=== PATIENT | female | born 1950 | race Caucasian/White ===

== ENCOUNTER 2016-12-25 12:21 | Emergency (ER) | payer OTHER ==
[2016-12-25 12:36] VITALS: RESP 16; TEMP 98.6
[2016-12-25 13:10] LABS: % IMMATURE GRANULYOCYTES 0.3 % (0.0-1.1); ABSOLUTE IMMATURE GRANULOCYTES 0.02 10^3/uL (0.00-0.10); ADD DIFF? NO; ADD MORPH? NO; ADD SCAN? NO; ATYPICAL LYMPHOCYTE FLAG 0 (0-99); FRAGMENT RBC FLAG 10 (0-99); HEMATOCRIT 45.3 % (38.0-47.0); HEMOGLOBIN 15.6 g/dL (12.6-16.3); LEFT SHIFT FLG 0 (0-99); LIPEMIA HEMOLYSIS FLAG 90 (0-99); MEAN CELL HEMOGLOBIN 31.8 pg (27.9-34.1); MEAN CELL HEMOGLOBIN CONCENTR. 34.4 g/dL (32.4-36.7); MEAN CELL VOLUME 92.4 fL (81.5-99.8); MEAN PLATELET VOLUME 9.4 fL (8.7-11.7); PLATELET CLUMPS FLAG 0 (0-99); PLATELET COUNT 210 10^3/uL (150-400); RED CELL DISTRIBUTION WIDTH 12.2 % (11.5-15.2)
[2016-12-25] MEDS ORDERED: MECLIZINE HCL 25 MG TAB PO ONE (13:24)
[2016-12-25] MEDS ORDERED: MECLIZINE HCL 25 MG TAB ONE (13:25)
--- NOTE | 2016-12-25 14:26 | EDPHY ---
[id number] 12/25/16 13:08 HPI/ROS: CHIEF COMPLAINT: Acute exacerbation of chronic vertigo HISTORY OF PRESENT ILLNESS: The patient presents to the emergency department with an acute exacerbation of chronic vertigo. The patient reports symptoms began on Sunday. She has had nausea and typical vertiginous symptoms. She has a history of intermittent vertigo since 2012. The patient denies recent fall or head injury. She has no complaints of focal numbness or weakness. The patient reportedly took Zofran with some improvement of her symptoms. She reportedly cannot tolerate benzodiazepines. The patient has been on a number of medications for management of vertigo in the past with limited success. The patient has chronic bilateral horizontal nystagmus. She reportedly has been evaluated by a number of providers including the [facility] and the [facility]. REVIEW OF SYSTEMS: A comprehensive 10 point review of systems is otherwise negative aside from elements mentioned in the history of present illness. Source: Patient Exam Limitations: No limitations - Personal History Current Tetanus/Diphtheria Vaccine: Yes Tetanus Vaccine Date: less than ten yrs - Medical/Surgical History Hx Asthma: No Hx Chronic Respiratory Disease: No Hx Diabetes: No Hx Cardiac Disease: No Hx Renal Disease: No Hx Cirrhosis: No Hx Alcoholism: No Hx HIV/AIDS: No Hx Splenectomy or Spleen Trauma: No Other PMH: HTN, VERTIGO, MIGRAINE. PSHx: r foot, r breast diverticulitis - Social History Smoking Status: Never smoked - Physical Exam Exam: General Appearance: Alert, no distress Eyes: Bilateral horizontal nystagmus noted ENT, Mouth: Mucous membranes moist Respiratory: There are no retractions, lungs are clear to auscultation Cardiovascular: Regular rate and rhythm Gastrointestinal: Abdomen is soft and nontender, no masses, bowel sounds normal Neurological: A&O, normal motor function, normal sensory exam, normal cranial nerves Skin: Warm and dry, no rashes Musculoskeletal: Neck is supple nontender Extremities: symmetrical, full range of motion Psychiatric: Patient is oriented X 3, there is no agitation Constitutional: Initial Vital Signs Temperature (C) 37 C 12/25/16 12:33 Heart Rate 67 12/25/16 12:33 Respiratory Rate 16 12/25/16 12:33 Blood Pressure 170/105 H 12/25/16 12:33 O2 Sat (%) 97 12/25/16 12:33 O2 Delivery Mode Room Air Allergies/Adverse Reactions: azithromycin Allergy (Verified 12/25/16 12:32) Vomiting gadobenate dimeglumine [From Multihance] Allergy (Verified 12/25/16 12:32) Vomiting midazolam HCl [From Versed] Allergy (Verified 12/25/16 12:32) Loss of consciousness Penicillins Allergy (Verified 12/25/16 12:32) Itching "Very drug sensitive" Allergy (Uncoded 09/21/13 20:44) pain medications Allergy (Uncoded 08/24/16 16:21) Vomiting Home Medications: Medication Instructions Recorded Aspirin [Aspirin 81mg (*)] 09/22/13 Fioricet (*) 08/24/16 Herbals/Supplements -Info Only 08/24/16 Ondansetron Odt [Zofran Odt 4 mg 08/24/16 (*)] Meclizine HCl [Meclizine HCl 12.5 12.5 mg PO TID PRN #20 tab 12/25/16 mg (*)] Ondansetron Odt [Zofran Odt] 4 mg PO Q4PRN PRN #20 tab 12/25/16 Medical Decision Making ED Course/Re-evaluation: The patient presents to the ED with an acute exacerbation of vertigo. She received IV fluids and had Zofran prior to arrival. She received 12.5 mg of meclizine. The patient did have improvement of her symptoms with no recurrent vomiting. She is ambulatory. She has not entirely asymptomatic but is safe to be discharged. She will be given a prescription for meclizine. She is advised to follow up as scheduled with her primary care provider. There is nothing to suggest central vertigo based upon her presentation today. I do not feel that acute neuro imaging or additional workup is indicated. Differential Diagnosis: Differential diagnosis considered includes central vertigo, peripheral vertigo, labyrinthitis - Data Points Laboratory Results: Laboratory Results 12/25/16 12:55 12/25/16 12:55 12/25/16 12:55 WBC 6.55 10^3/uL (3.80-9.50) RBC 4.90 10^6/uL (4.18-5.33) Hgb 15.6 g/dL (12.6-16.3) Hct 45.3 % (38.0-47.0) MCV 92.4 fL (81.5-99.8) MCH 31.8 pg (27.9-34.1) MCHC 34.4 g/dL (32.4-36.7) RDW 12.2 % (11.5-15.2) Plt Count 210 10^3/uL (150-400) MPV 9.4 fL (8.7-11.7) Neut % (Auto) 64.5 % (39.3-74.2) Lymph % (Auto) 29.0 % (15.0-45.0) [place] % (Auto) 5.3 % (4.5-13.0) Eos % (Auto) 0.3 L % (0.6-7.6) Baso % (Auto) 0.6 % (0.3-1.7) Nucleat RBC Rel Count 0.0 % (0.0-0.2) Absolute Neuts (auto) 4.22 10^3/uL (1.70-6.50) Absolute Lymphs (auto) 1.90 10^3/uL (1.00-3.00) Absolute Monos (auto) 0.35 10^3/uL (0.30-0.80) Absolute Eos (auto) 0.02 L 10^3/uL (0.03-0.40) Absolute Basos (auto) 0.04 10^3/uL (0.02-0.10) Absolute Nucleated RBC 0.00 10^3/uL (0-0.01) Immature Gran % 0.3 % (0.0-1.1) Immature Gran # 0.02 10^3/uL (0.00-0.10) Sodium 141 mEq/L (134-144) Potassium 4.3 mEq/L (3.5-5.2) Chloride 104 mEq/L (97-110) Carbon Dioxide 26 mEq/l (22-31) Anion Gap 11 mEq/L (8-16) BUN 15 mg/dL (7-23) Creatinine 0.8 mg/dL (0.6-1.0) Estimated GFR > 60 Glucose 108 H mg/dL (70-100) Calcium 9.2 mg/dL (8.5-10.4) Medications Given: Discontinued Medications Meclizine HCl (Meclizine Hcl) 12.5 mg PO EDNOW ONE Stop: 12/25/16 13:25 Last Admin: 12/25/16 13:29 Dose: 12.5 mg Departure - Departure Disposition: Home, Routine, Self-Care Clinical Impression: Vertigo Condition: Good Instructions: Vertigo (ED) Additional Instructions: 1. Zofran as needed for nausea. 12.5 mg meclizine as needed for dizziness. 2. Return to the ED for markedly worsening symptoms or other concerns. Referrals: Ramandeep Renteria MD [Primary Care Provider] - As per Instructions Prescriptions: Meclizine HCl [Meclizine HCl 12.5 mg (*)] 12.5 mg PO TID PRN #20 tab PRN Reason: for vertigo Ondansetron Odt [Zofran Odt] 4 mg PO Q4PRN PRN #20 tab PRN Reason: For Nausea
[2016-12-25 14:43] LABS: ANION GAP 11 mEq/L (8-16); CALCIUM 9.2 mg/dL (8.5-10.4); CARBON DIOXIDE 26 mEq/l (22-31); CHLORIDE 104 mEq/L (97-110); CREATININE 0.8 mg/dL (0.6-1.0); GLOMERULAR FILTRATION RATE > 60; GLUCOSE 108 mg/dL (70-100); POTASSIUM 4.3 mEq/L (3.5-5.2); SODIUM 141 mEq/L (134-144)
[2016-12-25 15:10] VITALS: BP 162/96; PULSE 68; O2SAT 98
== END 2016-12-25 15:10 | disposition home or self-care (01) ==
DX: R42 Dizziness and giddiness (principal); I10 Essential (primary) hypertension; Z79.82 Long term (current) use of aspirin

== ENCOUNTER → 2017-01-22 | Outpatient (CLI) | payer OTHER | LOC: FIMAGING 15:25 | DX: Z12.31 Encounter for screening mammogram for malignant neoplasm of breast (principal) | CPT/HCPCS: G0202 ==

== ENCOUNTER 2018-03-19 22:00 | Emergency (ER) | payer OTHER ==
--- NOTE | 2018-03-19 22:44 | EDPHY ---
H & P Stated Complaint: COUGH , CONGESTION AND FEVER FEW DAYS Time Seen by Provider: 03/19/18 22:28 HPI/ROS: Chief Complaint: Fever, congestion, cough HPI: 67-year-old woman presenting with 3-4 days of cough, congestion, mild sore throat and intermittent fever. Tonight at 7 o'clock she says her fever was 101. She took 2 Advil. She is concerned that she has continued to have intermittent fevers in this might represent a significant underlying infection. Her cough is nonproductive. No abdominal pain. No urinary symptoms. No nausea or vomiting. No chest pain. No shortness of breath. She does not have any underlying medical problems. She is no history of immunocompromise. She is on no chronic medications. ROS: 10 point Review of Systems is negative except as noted in the HPI. PMH: Vertigo Social History: No smoking, no alcohol, no recreational drug use Family History: non-contributory Physical Exam: Gen: Awake, Alert, No Distress HEENT: Nose: no rhinorrhea Eyes: PERRLA, EOMI Mouth: Moist mucosa Neck: Supple, no JVD Chest: nontender, lungs clear to auscultation Heart: S1, S2 normal, no murmur Abd: Soft, non-tender, no guarding Back: no CVA tenderness, no midline tenderness Ext: no edema, non-tender Skin: no rash Neuro: CN II-XII intact, Sensation grossly intact, Strength 5/5 in bilateral upper and lower extremities - Personal History Current Tetanus/Diphtheria Vaccine: No Current Tetanus Diphtheria and Acellular Pertussis (TDAP): No Tetanus Vaccine Date: less than ten yrs - Medical/Surgical History Hx Asthma: No Hx Chronic Respiratory Disease: No Hx Diabetes: No Hx Cardiac Disease: No Hx Renal Disease: No Hx Cirrhosis: No Hx Alcoholism: No Hx HIV/AIDS: No Hx Splenectomy or Spleen Trauma: No Other PMH: HTN, VERTIGO, MIGRAINE. PSHx: r foot, r breast diverticulitis - Social History Smoking Status: Never smoked Constitutional: Initial Vital Signs Temperature (C) 37.6 C 03/19/18 22:05 Heart Rate 83 03/19/18 22:05 Respiratory Rate 18 03/19/18 22:05 Blood Pressure 171/100 H 03/19/18 22:05 O2 Sat (%) 92 03/19/18 22:05 O2 Delivery Mode Room Air Allergies/Adverse Reactions: azithromycin Allergy (Verified 03/19/18 22:09) Vomiting gadobenate dimeglumine [From Multihance] Allergy (Verified 03/19/18 22:09) Vomiting midazolam HCl [From Versed] Allergy (Verified 03/19/18 22:09) Loss of consciousness Penicillins Allergy (Verified 03/19/18 22:09) Itching "Very drug sensitive" Allergy (Uncoded 03/19/18 22:09) pain medications Allergy (Uncoded 03/19/18 22:09) Vomiting Home Medications: Medication Instructions Recorded Aspirin [Aspirin 81mg (*)] 09/22/13 Fioricet (*) 08/24/16 Herbals/Supplements -Info Only 08/24/16 Meclizine HCl [Meclizine HCl 12.5 12.5 mg PO TID PRN #20 tab 12/25/ mg (*)] Medical Decision Making - Diagnostics Imaging Results: Imaging Impressions Chest X-Ray 03/19/18 22:37 Impression: No consolidative pneumonia. Imaging: I viewed and interpreted images myself ED Course/Re-evaluation: Chest x-ray is negative for acute pneumonia or consolidation. Patient has otherwise no focal source of infection. Symptoms consistent with viral upper respiratory infection. She is afebrile here. Oxygen saturations remained of her vital signs are unremarkable. Will discharge with supportive treatment, follow up with primary care physician in 3-4 days for further evaluation. Departure - Departure Disposition: Home, Routine, Self-Care Clinical Impression: Viral upper respiratory illness Condition: Good Instructions: Upper Respiratory Infection (ED) Additional Instructions: Alternate acetaminophen (1000 mg) with ibuprofen (400 mg) every 4 hours as needed for fevers, chills, aches or pain. Follow up with primary care physician in 2-4 days for further evaluation. Return to the emergency department for uncontrolled fever, shortness of breath, worsening cough, or any other concerns. Referrals: Ramandeep Renteria MD [Primary Care Provider] - As per Instructions
[2018-03-19] MEDS ORDERED: ACETAMINOPHEN 500 MG TAB PO ONE (23:55)
[2018-03-20 00:09] VITALS: BP 179/87
== END 2018-03-20 00:35 | disposition home or self-care (01) ==
DX: J06.9 Acute upper respiratory infection, unspecified (principal); I10 Essential (primary) hypertension; Z79.82 Long term (current) use of aspirin

== ENCOUNTER → 2019-01-02 | Outpatient (CLI) | payer OTHER | LOC: FIMAGING 11:51 | PROVIDERS: ATTEND Family Medicine | DX: Z12.31 Encounter for screening mammogram for malignant neoplasm of breast (principal); Z80.3 Family history of malignant neoplasm of breast ==

== ENCOUNTER 2019-03-12 18:00 | Emergency (ER) | payer OTHER ==
[2019-03-12] MEDS ORDERED: metroNIDAZOLE 500 MG TAB PO ONE (19:11)
--- NOTE | 2019-03-12 19:11 | EDPHY ---
H & P Time Seen by Provider: 03/12/19 18:37 HPI/ROS: CHIEF COMPLAINT: Diverticulitis HISTORY OF PRESENT ILLNESS: 68-year-old woman has a history of previous diverticulitis where she was much sicker and ended up being hospitalized for several days back in 2016. She has been sick with a head cold for about 2 or 3 weeks and was seen in her primary care physician's office recently and given a prescription for Levaquin which she did not take initially. On Sunday night she started with left lower quadrant abdominal pain which was similar to previous episode of diverticulitis. Last night she got a lot worse in at 1:00 a.m. She felt really sick. She started Levaquin last night and now she feels better than she did at 1:00 a.m. But still not completely better. She had at 5: 30 p.m. Slight blood and mucus stool when she wiped on the toilet paper. Pain does not radiate. It is a little bit worse with movement. No vomiting, no fever or chills. REVIEW OF SYSTEMS: Eye: no change in vision ENT: HPI recent head cold Cardiac: no chest pain or syncope Pulmonary: no cough or SOB Abdomen: HPI no diarrhea but stool is present. Musculoskeletal: no back pain Skin: no rash Neuro: no headache Constitutional: no fever : no urinary symptoms A comprehensive 10 point review of systems is otherwise negative aside from elements mentioned in the history of present illness. PAST MEDICAL HISTORY: Includes diverticulitis, migraine, right foot and right breast surgery Social history: Primary care is Dr. Ramandeep Renteria General Appearance: Alert and conversant, cooperative. Eyes: No scleral icterus. ENT, Mouth: Slightly dry mucous membranes but decreased oral intake after talking to the triage nurse at 5:30 p.m.. Respiratory: Normal respiratory effort, breath sounds equal, lungs are clear to auscultation. Cardiovascular: Regular rate and rhythm. Gastrointestinal: Abdomen is soft and non tender. She does not have rebound or guarding. Bowel sounds are present. Rectal exam shows brown stool with no active blood or melena or maroon stool or bleeding. Neurological: Alert, face symmetric, normal motor and sensory in extremities. Skin: Warm and dry, no rashes. Musculoskeletal: No peripheral edema. Psychiatric: Not agitated. Emergency Department course/MDM: Patient is afebrile, has a benign abdominal exam, is not vomiting. She thinks that she has recurrent diverticulitis. I think the little bit of blood that she had does not represent impending large lower GI bleed. I think that perforation or abscess is less likely, appendicitis or bowel obstruction or renal colic or UTI unlikely. Discussed treatment with meclizine which she has, Levaquin and Flagyl and the patient is in agreement with the plan. She is in agreement with no imaging at this time, which I think is reasonable. Smoking Status: Never smoked Constitutional: Initial Vital Signs Temperature (C) 37.2 C 03/12/19 18:03 Heart Rate 74 03/12/19 18:03 Respiratory Rate 16 03/12/19 18:03 Blood Pressure 172/102 H 03/12/19 18:03 O2 Sat (%) 94 03/12/19 18:03 O2 Delivery Mode Room Air Allergies/Adverse Reactions: azithromycin Allergy (Verified 03/19/18 22:09) Vomiting gadobenate dimeglumine [From Multihance] Allergy (Verified 03/19/18 22:09) Vomiting midazolam HCl [From Versed] Allergy (Verified 03/19/18 22:09) Loss of consciousness Penicillins Allergy (Verified 03/19/18 22:09) Itching "Very drug sensitive" Allergy (Uncoded 03/19/18 22:09) pain medications Allergy (Uncoded 03/19/18 22:09) Vomiting Home Medications: Medication Instructions Recorded Aspirin [Aspirin 81mg (*)] 09/22/13 Fioricet (*) 08/24/16 Herbals/Supplements -Info Only 08/24/16 Meclizine HCl [Meclizine HCl 12.5 12.5 mg PO TID PRN #20 tab 12/25/16 mg (*)] levOFLOXACIN [levAQUIN (*)] 750 mg PO DAILY #6 tab 03/12/19 metroNIDAZOLE [Metronidazole] 500 mg PO Q8H #30 tab 03/12/19 Medical Decision Making - Data Points Medications Given: Discontinued Medications Levofloxacin (Levaquin) 750 mg PO EDNOW ONE PRN Reason: Protocol Stop: 03/12/19 19:12 Last Admin: 03/12/19 19:17 Dose: 750 mg Metronidazole (Flagyl) 500 mg PO EDNOW ONE PRN Reason: Protocol Stop: 03/12/19 19:12 Last Admin: 03/12/19 19:17 Dose: 500 mg Departure - Departure Disposition: Home, Routine, Self-Care Clinical Impression: Diverticulitis Qualifiers: Diverticulitis site: unspecified part of intestinal tract Diverticulitis bleeding: unspecified bleeding status Diverticulitis complication: without perforation or abscess Qualified Code(s): K57.92 - Diverticulitis of intestine, part unspecified, without perforation or abscess without bleeding Condition: Good Instructions: Diverticulitis (ED) Additional Instructions: Continue Levaquin for total of 14 days. Return if you get fever or worsening pain or vomiting, recurrent or increasing rectal bleeding. Referrals: Ramandeep Renteria MD [Primary Care Provider] - 3-4 days, if not improved Prescriptions: levOFLOXACIN [levAQUIN (*)] 750 mg PO DAILY #6 tab metroNIDAZOLE [Metronidazole] 500 mg PO Q8H #30 tab
[2019-03-12] MEDS ORDERED: metroNIDAZOLE 500 MG TAB ONE (19:22)
[2019-03-12 19:25] VITALS: BP 153/116
== END 2019-03-12 19:22 | disposition home or self-care (01) ==
DX: K57.92 Diverticulitis of intestine, part unspecified, without perforation or abscess without bleeding (principal)

== ENCOUNTER 2019-03-14 00:26 | Inpatient (IN) | payer OTHER ==
[2019-03-14] MEDS ORDERED: NS 1,000 ML IV ONE ×2 (00:32→01:37)
[2019-03-14] MEDS ORDERED: HYDROmorphONE/DILAUDID 2 MG/ML INJ IVP ONE (00:32)
--- NOTE | 2019-03-14 00:36 | EDPHY ---
H & P Stated Complaint: diverticulitis Time Seen by Provider: 03/14/19 00:35 HPI/ROS: HPI CHIEF COMPLAINT: Abdominal pain, chills, diverticulitis HISTORY OF PRESENT ILLNESS: This patient is a 68-year-old female, she presents emergency room with ongoing abdominal pain, chills, nausea, this concerned that her diverticulitis is getting worse. Patient states she was recently in emergency room started on Flagyl and previously to that Levaquin. She followed up with primary care doctor today if she felt worse who recommended that she comes back to the emergency room. She went back home. And now tonight she started developing chills/rigors and felt unwell so called 911. She arrives to the emergency room by ambulance complaining of feeling unwell. Past Medical History: History of migraines, diverticulitis in the past Past Surgical History: No recent surgery Social History: Denies drugs alcohol tobacco. Family History: Noncontributory ROS REVIEW OF SYSTEMS: 10 Systems were reviewed and negative with the exception of the elements mentioned in the history of present illness. Exam Constitutional triage nursing summary reviewed, vital signs reviewed, awake/ alert. Eyes normal conjunctivae and sclera, EOMI, PERRLA. HENT normal inspection, atraumatic, moist mucus membranes, no epistaxis, neck supple/ no meningismus, no raccoon eyes. Respiratory clear to auscultation bilaterally, normal breath sounds, no respiratory distress, no wheezing. Cardiovascular rate normal, regular rhythm, no murmur, no edema, distal pulses normal. Gastrointestinal mild tender palpation left lower quadrant, no peritoneal signs , no rebound, no guarding, normal bowel sounds, no distension, no pulsatile mass. Genitourinary no CVA tenderness. Musculoskeletal no midline vertebral tenderness, full range of motion, no calf swelling, no tenderness of extremities, no meningismus, good pulses, neurovascularly intact. Skin pink, warm, & dry, no rash, skin atraumatic. Neurologic awake, alert and oriented x 3, AAOx3, moves all 4 extremities equally, motor intact, sensory intact, CN II-XII intact, normal cerebellar, normal vision, normal speech. Psychiatric normal mood/affect. Heme/Lymph/Immune no lymphadenopathy. Differential Diagnosis: Differential diagnosis includes but is not limited to and in no particular order: Complicated diverticulitis, diverticulitis with perforation, diverticulitis with abscess, rigors indicating bacteremia, Bowel obstruction, appendicitis, gallbladder disease, diverticulitis, colitis, enteritis, perforated viscus, gastritis, GERD, esophagitis, urinary tract infection, pyelonephritis, kidney stones Medical Decision Making: Plan for this patient IV establishment IV fluid bolus , IV Dilaudid for pain control, basic labs, lactic acid, blood cultures, CT scan abdomen pelvis with IV contrast and re-evaluate. Re-evaluation: CT scan abdomen pelvis with IV contrast faxed to me by direct [facility]iology at time 1:50 a.m., acute uncomplicated diverticulitis of the sigmoid colon. Additionally multiple incompletely characterized liver lesions recommend dedicated liver imaging no significant change compared to 04/04/2016. Source: Patient - Personal History Current Tetanus Diphtheria and Acellular Pertussis (TDAP): Yes Tetanus Vaccine Date: less than ten yrs - Medical/Surgical History Hx Asthma: No Hx Chronic Respiratory Disease: No Hx Diabetes: No Hx Cardiac Disease: No Hx Renal Disease: No Hx Cirrhosis: No Hx Alcoholism: No Hx HIV/AIDS: No Hx Splenectomy or Spleen Trauma: No Other PMH: HTN, VERTIGO, MIGRAINE. PSHx: R foot, R breast lumpectomy, diverticulitis - Social History Smoking Status: Never smoked Constitutional: Initial Vital Signs Temperature (C) 37 C 03/14/19 00:29 Heart Rate 88 03/14/19 00:29 Respiratory Rate 16 03/14/19 00:29 Blood Pressure 206/95 H 03/14/19 00:29 O2 Sat (%) 96 03/14/19 00:29 O2 Delivery Mode Nasal Cannula O2 (L/minute) 2 Allergies/Adverse Reactions: azithromycin Allergy (Verified 03/14/19 00:29) Vomiting gadobenate dimeglumine [From Multihance] Allergy (Verified 03/14/19 00:29) Vomiting midazolam HCl [From Versed] Allergy (Verified 03/14/19 00:29) Loss of consciousness Penicillins Allergy (Verified 03/14/19 00:29) Itching "Very drug sensitive" Allergy (Uncoded 03/14/19 00:29) pain medications Allergy (Uncoded 03/14/19 00:29) Vomiting Home Medications: Medication Instructions Recorded metroNIDAZOLE [Metronidazole] 500 mg PO Q8H #30 tab 03/12/19 Acetaminophen [Tylenol 325mg (*)] 325 mg PO Q4HRS PRN 03/14/19 Ascorbic Acid [Vitamin C 500 mg 500 mg PO DAILY 03/14/19 (*)] C/E/Zn/Cu/OM3/DHA/EPA/LUT/ZEAX 1 each PO BID 03/14/19 [Preservision Areds 2 Softgel] Cholecalciferol Vit D3 [Vitamin D3 1,000 units PO DAILY 03/14/19 (*)] Glucosamine/Chondroitin 1 each PO DAILY 03/14/19 [Glucosamine/Chondroitin (*)] Ibuprofen [Motrin (*)] 200 mg PO Q4HRS PRN 03/14/19 Irbesartan [Avapro 75 mg (*)] 75 mg PO HS 03/14/19 Lact Cmb2/S.thermophl/Bif Cmb1 1 each PO DAILY 03/14/19 [Vsl#3 Cap (*)] [place]-3 Fatty Acids [Fish Oil 1000 1,000 mg PO DAILY 03/14/19 mg (*)] Polyethylene Glycol 3350 [Miralax 17 gm PO DAILY 03/14/19 17 gm (*)] Psyllium Husk (with Sugar) 1 each PO DAILY 03/14/19 [Metamucil Packet] Tears/Dextran 70/Hypromellose 1 drop EACHEYE Q2 PRN 03/14/19 [Natural Balance Tears (*)] levOFLOXACIN [levAQUIN (*)] 750 mg PO DAILY@17 03/14/19 Medical Decision Making - Data Points Laboratory Results: Laboratory Results 03/14/19 00:32 03/14/19 00:32 Medications Given: Enoxaparin Sodium (Lovenox) 40 mg SC DAILY HARRY Stop: 09/10/19 08:59 Last Admin: 03/14/19 09:07 Dose: 40 mg Metronidazole/Sodium Chloride (Flagyl 500 Mg (Premix)) 100 mls @ 100 mls/hr IV Q8H HARRY Stop: 04/13/19 10:59 Last Admin: 03/14/19 19:22 Dose: 100 mls Ondansetron HCl (Zofran) 4 mg IVP Q4HRS PRN PRN Reason: Nausea/Vomiting, Can't Take PO Stop: 09/10/19 02:22 Last Admin: 03/14/19 06:37 Dose: 4 mg Pantoprazole Sodium (Protonix) 40 mg IVP DAILY HARRY Stop: 09/10/19 08:59 Last Admin: 03/14/19 09:08 Dose: 40 mg Discontinued Medications Hydromorphone HCl (Dilaudid) 0.5 mg IVP EDNOW ONE Stop: 03/14/19 00:33 Last Admin: 03/14/19 00:39 Dose: 0.5 mg Sodium Chloride (Ns) 1,000 mls @ 0 mls/hr IV EDNOW ONE; Wide Open PRN Reason: Protocol Stop: 03/14/19 00:33 Last Admin: 03/14/19 00:41 Dose: 1,000 mls Sodium Chloride (Ns) 1,000 mls @ 0 mls/hr IV ONCE ONE PRN Reason: Wide Open Stop: 03/14/19 01:38 Last Admin: 03/14/19 02:56 Dose: 1,000 mls Ceftriaxone Sodium/Dextrose (Rocephin 1 Gm (Premix)) 50 mls @ 100 mls/hr IV EDNOW ONE PRN Reason: Protocol Stop: 03/14/19 02:32 Last Admin: 03/14/19 02:50 Dose: 50 mls Metronidazole/Sodium Chloride (Flagyl 500 Mg (Premix)) 100 mls @ 100 mls/hr IV EDNOW ONE PRN Reason: Protocol Stop: 03/14/19 03:02 Last Admin: 03/14/19 03:01 Dose: 100 mls Sodium Chloride (Ns) 1,000 mls @ 100 mls/hr IV CONT HARRY Stop: 03/14/19 19:14 Last Admin: 03/14/19 09:34 Dose: 1,000 mls Departure - Departure Disposition: [facility] Clinical Impression: Liver lesion Diverticulitis Qualifiers: Diverticulitis site: unspecified part of intestinal tract Diverticulitis bleeding: without bleeding Diverticulitis complication: unspecified complication status Qualified Code(s): K57.92 - Diverticulitis of intestine, part unspecified, without perforation or abscess without bleeding Condition: Fair
[2019-03-14 00:43] LABS: PLATELET COUNT 215 10^3/uL (150-400)
[2019-03-14 00:51] LABS: INR 1.01 (0.83-1.16); PROTIME(PATIENT) 12.9 SEC (12.0-15.0)
[2019-03-14] MEDS ORDERED: IOPAMIDOL (ISOVUE-300) 100 ML BTL ONE (01:05)
[2019-03-14] MEDS ORDERED: ONDANSETRON 4 MG/2 ML VIAL IVP PRN (02:23)
[2019-03-14] MEDS ORDERED: ACETAMINOPHEN 325 MG TAB PO PRN (02:23)
[2019-03-14] MEDS ORDERED: HYDROCODONE/APAP 5/325 TAB PO PRN (02:23)
[2019-03-14] MEDS ORDERED: diphenhydrAMINE 25 MG CAP PO PRN (02:23)
[2019-03-14] MEDS ORDERED: HYDROmorphONE/DILAUDID 1 MG/ML INJ IVP PRN (02:23)
[2019-03-14] MEDS ORDERED: PROMETHAZINE HCL 25 MG/ML INJ IVP PRN (08:29)
[2019-03-14] MEDS ORDERED: HYOSCYAMINE SULFATE 0.125 MG TAB PO PRN (08:32)
[2019-03-14] MEDS ORDERED: DICYCLOMINE 10 MG CAP PO PRN (08:32)
[2019-03-14] MEDS ORDERED: MAG HYDROX/AL HYDROX/SIMETH 30 ML UDCUP PO PRN (08:34)
[2019-03-14] MEDS: ENOXAPARIN 40 MG/0.4 ML SYR SC SCH (09:07)
[2019-03-14] MEDS: PANTOPRAZOLE SODIUM 40 MG VIAL IVP SCH (09:08)
[2019-03-14] MEDS ORDERED: NS 1,000 ML IV SCH (09:15)
[2019-03-14] MEDS ORDERED: hydrALAZINE 20 MG/ML VIAL IVP PRN (09:43)
--- NOTE | 2019-03-14 10:07 | PDGENHP ---
History and Physical - Chief Complaint Left lower quadrant abdominal pain - History of Present Illness Source-patient provides history appears reliable. EMR was reviewed and case discussed with ED provider. This is a 68-year-old female with past medical history significant for GERD, diverticulitis in 2016 vertigo hypertension who presents emergency department today with complaints of left lower quadrant abdominal pain. Patient reports she has had increasing nausea with some vomiting on and constipation. Patient denies any melena or hematochezia although she did have some a small swipe of blood on toilet paper x1. She also is reporting some increasing pain that she has never felt before so CT dysphagia some numbness tingling in all extremities nothing focal. On she reports that she has been sick with a viral URI type syndrome for the past 2-3 weeks and she has had a fever. Issues patient is complaining of a cough. She denies any chest pain or shortness of breath. Patient currently complaining of severe reflux. She notes abdominal distension and severe intermittent cramping in the left lower quadrant. Patient reports that her pain was so bad this evening that as she lives alone she did call 911 as she could even get up to the go to the bathroom. Patient previously had discussed a surgery is an option to relieve her symptoms. At this point given the severity of her symptoms on the 2nd occurrence she in the future will plan to seriously consider a sigmoidectomy. History Information - Allergies/Home Medication List Allergies/Adverse Reactions: azithromycin Allergy (Verified 03/14/19 00:29) Vomiting gadobenate dimeglumine [From Multihance] Allergy (Verified 03/14/19 00:29) Vomiting midazolam HCl [From Versed] Allergy (Verified 03/14/19 00:29) Loss of consciousness Penicillins Allergy (Verified 03/14/19 00:29) Itching "Very drug sensitive" Allergy (Uncoded 03/14/19 00:29) pain medications Allergy (Uncoded 03/14/19 00:29) Vomiting Home Medications: Acetaminophen [Tylenol 325mg (*)] 325 mg PO Q4HRS PRN 03/14/19 [Last Taken Unknown] Ascorbic Acid [Vitamin C 500 mg (*)] 500 mg PO DAILY 03/14/19 [Last Taken ] C/E/Zn/Cu/OM3/DHA/EPA/LUT/ZEAX [Preservision Areds 2 Softgel] 1 each PO BID [Last Taken 03/13/19 21:00] Cholecalciferol Vit D3 [Vitamin D3 (*)] 1,000 units PO DAILY 03/14/19 [Last Taken 03/13/19] Glucosamine/Chondroitin [Glucosamine/Chondroitin (*)] 1 each PO DAILY 03/14/19 [ Last Taken 03/13/19] Ibuprofen [Motrin (*)] 200 mg PO Q4HRS PRN 03/14/19 [Last Taken Unknown] Irbesartan [Avapro 75 mg (*)] 75 mg PO HS 03/14/19 [Last Taken 03/13/19] Lact Cmb2/S.thermophl/Bif Cmb1 [Vsl#3 Cap (*)] 1 each PO DAILY 03/14/19 [Last Taken 03/13/19] [place]-3 Fatty Acids [Fish Oil 1000 mg (*)] 1,000 mg PO DAILY 03/14/19 [Last Taken 03/13/19] Polyethylene Glycol 3350 [Miralax 17 gm (*)] 17 gm PO DAILY 03/14/19 [Last Taken 03/13/19] Psyllium Husk (with Sugar) [Metamucil Packet] 1 each PO DAILY 03/14/19 [Last Taken 03/13/19] Tears/Dextran 70/Hypromellose [Natural Balance Tears (*)] 1 drop EACHEYE Q2 PRN 03/14/19 [Last Taken Unknown] levOFLOXACIN [levAQUIN (*)] 750 mg PO DAILY@17 03/14/19 [Last Taken 03/12/19] I have personally reviewed and updated: family history, medical history, social history, surgical history - Past Medical History Additional medical history: GERD, diverticulitis, vertigo, HTN - Surgical History Additional surgical history: Right toe surgery x2 right breast lumpectomy were significant for a fibroadenoma. - Family History Additional family history: Grandfather with diabetes, sister and grandmother with breast cancer. - Social History Smoking Status: Never smoked Alcohol Use: None Drug Use: None Additional social history: Patient lives alone. Code status full. Review of Systems Review of Systems: ROS: 10pt was reviewed & negative except for what was stated in HPI & below Constitutional: Reports: chills, fever, malaise, recent illness, weakness Physical Exam Physical Exam: Selected Entries 03/14/19 00:29 Blood Pressure Automatic Method Heart Rate 88 Respiratory 16 Rate O2 Sat (%) 96 Temperature (C) 37 C Blood Pressure 206/95 H Mean Arterial 132 H Pressure (MAP) O2 Delivery Room Air Mode Temperature Oral Source Temp Pulse Resp BP Pulse Ox 36.9 C 71 16 155/82 H 97 03/14/19 08:00 03/14/19 08:00 03/14/19 08:00 03/14/19 09:26 03/14/19 08:00 O2 (L/minute) 1 Constitutional: appears nourished, uncomfortable, other (Patient no acute distress. She does appear uncomfortable and is lying quietly in bed she does appear significantly tired and acutely ill but nontoxic.) Eyes: PERRL (Slightly decreased reactivity light bilaterally but symmetric.), EOMI, No scleral injection Ears, Nose, Mouth, Throat: dry mucous membranes, other (No nasal discharge), No poor dentition Cardiovascular: regular rate and rhythym, no murmur, rub, or gallop, irregularly irregular, No edema Peripheral Pulses: 1+: dorsalis-pedis (R), dorsalis-pedis (L) Respiratory: no respiratory distress, no rales or rhonchi, clear to auscultation , reduced air movement (Poor inspiratory effort) Gastrointestinal: no palpable masses, distension, other (Hypoactive bowel sounds ), No ascites, No guarding Genitourinary: no bladder tenderness, No osullivan in urethra Skin: warm, no rashes or abrasions, other ([place]) Musculoskeletal: pain with ROM, generalized weakness Neurologic: AAOx3, sensation intact bilaterally, other (Grossly nonfocal exam.) , No facial droop Psychiatric: interacting appropriately, not encephalopathic, thought process linear, anxious, No poor insight, No poor judgement, No poor memory Lab Data & Imaging Review 03/14/19 00:32 03/14/19 00:32 WBC 6.91 10^3/uL (3.80-9.50) 03/14/19 00:32 RBC 4.82 10^6/uL (4.18-5.33) 03/14/19 00:32 Hgb 15.0 g/dL (12.6-16.3) 03/14/19 00:32 Hct 43.6 % (38.0-47.0) 03/14/19 00:32 MCV 90.5 fL (81.5-99.8) 03/14/19 00:32 MCH 31.1 pg (27.9-34.1) 03/14/19 00:32 MCHC 34.4 g/dL (32.4-36.7) 03/14/19 00:32 RDW 11.8 % (11.5-15.2) 03/14/19 00:32 Plt Count 215 10^3/uL (150-400) 03/14/19 00:32 MPV 9.5 fL (8.7-11.7) 03/14/19 00:32 Neut % (Auto) 50.0 % (39.3-74.2) 03/14/19 00:32 Lymph % (Auto) 39.1 % (15.0-45.0) 03/14/19 00:32 [place] % (Auto) 8.7 % (4.5-13.0) 03/14/19 00:32 Eos % (Auto) 1.2 % (0.6-7.6) 03/14/19 00:32 Baso % (Auto) 0.6 % (0.3-1.7) 03/14/19 00:32 Nucleat RBC Rel Count 0.0 % (0.0-0.2) 03/14/19 00:32 Absolute Neuts (auto) 3.46 10^3/uL (1.70-6.50) 03/14/19 00:32 Absolute Lymphs (auto) 2.70 10^3/uL (1.00-3.00) 03/14/19 00:32 Absolute Monos (auto) 0.60 10^3/uL (0.30-0.80) 03/14/19 00:32 Absolute Eos (auto) 0.08 10^3/uL (0.03-0.40) 03/14/19 00:32 Absolute Basos (auto) 0.04 10^3/uL (0.02-0.10) 03/14/19 00:32 Absolute Nucleated RBC 0.00 10^3/uL (0-0.01) 03/14/19 00:32 Immature Gran % 0.4 % (0.0-1.1) 03/14/19 00:32 Immature Gran # 0.03 10^3/uL (0.00-0.10) 03/14/19 00:32 PT 12.9 SEC (12.0-15.0) 03/14/19 00:32 INR 1.01 (0.83-1.16) 03/14/19 00:32 APTT 36.6 SEC (23.0-38.0) 03/14/19 00:32 VBG Lactic Acid 1.2 mmol/L (0.7-2.1) 03/14/19 00:32 Sodium 134 mEq/L (135-145) L 03/14/19 00:32 Potassium 4.1 mEq/L (3.5-5.2) 03/14/19 00:32 Chloride 97 mEq/L (97-110) 03/14/19 00:32 Carbon Dioxide 24 mEq/l (22-31) 03/14/19 00:32 Anion Gap 13 mEq/L (6-14) 03/14/19 00:32 BUN 9 mg/dL (7-23) 03/14/19 00:32 Creatinine 0.7 mg/dL (0.6-1.0) 03/14/19 00:32 Estimated GFR > 60 03/14/19 00:32 Glucose 114 mg/dL (70-100) H 03/14/19 00:32 Calcium 9.5 mg/dL (8.5-10.4) 03/14/19 00:32 Total Bilirubin 0.7 mg/dL (0.1-1.4) 03/14/19 00:32 Conjugated Bilirubin 0.2 mg/dL (0.0-0.5) 03/14/19 00:32 Unconjugated Bilirubin 0.5 mg/dL (0.0-1.1) 03/14/19 00:32 AST 20 IU/L (14-46) 03/14/19 00:32 ALT 30 IU/L (9-52) 03/14/19 00:32 Alkaline Phosphatase 126 IU/L (38-126) 03/14/19 00:32 Total Protein 7.8 g/dL (6.3-8.2) 03/14/19 00:32 Albumin 4.5 g/dL (3.5-5.0) 03/14/19 00:32 Lipase 125 IU/L (23-300) 03/14/19 00:32 Urine Color PALE YELLOW 03/14/19 02:24 Urine Appearance CLEAR 03/14/19 02:24 Urine pH 5.0 (5.0-7.5) 03/14/19 02:24 Ur Specific [place] > 1.035 (1.002-1.030) H 03/14/19 02:24 Urine Protein NEGATIVE (NEGATIVE) 03/14/19 02:24 Urine Ketones 1+ (NEGATIVE) H 03/14/19 02:24 Urine Blood NEGATIVE (NEGATIVE) 03/14/19 02:24 Urine Nitrate NEGATIVE (NEGATIVE) 03/14/19 02:24 Urine Bilirubin NEGATIVE (NEGATIVE) 03/14/19 02:24 Urine Urobilinogen NEGATIVE EU (0.2-1.0) 03/14/19 02:24 Ur Leukocyte Esterase NEGATIVE (NEGATIVE) 03/14/19 02:24 Urine Glucose NEGATIVE (NEGATIVE) 03/14/19 02:24 Imaging Review: CT Scan of the Abdomen and Pelvis (With Contrast) 0116 hours History: Worsening abdominal pain, worsening diverticulitis, history of benign liver lesions. Comparison: CT April 04, 2016. Technique: Axial computed tomographic images of the abdomen and pelvis were obtained with the uneventful intravenous administration of 90 mL Isovue-300 contrast. No oral contrast. Dose reduction techniques were utilized. CT Abdomen Findings: Lung bases: No pleural effusion. Liver: Several hypodense hepatic lesions with the largest centrally in the right lobe of the liver measuring 23 x 17 mm, previously measuring 26 x 20 mm, with previous scan demonstrating peripheral nodular enhancement consistent with hepatic hemangiomas. No new lesions or enlarging lesions noted. Biliary System: No biliary ductal dilation. Spleen: Normal. Pancreas: Normal. Adrenals: Normal. Kidneys: No obstruction or solid masses. Abdominal Aorta: No aneurysm. Diffuse diverticulosis coli throughout the entire colon. Appendix appears normal without inflammatory changes. No significant retroperitoneal or mesenteric adenopathy, pneumoperitoneum, or drainable abscess. CT Pelvis Findings: Sigmoid diverticulosis with 6 cm of pericolonic inflammatory thickening and stranding in the mid sigmoid colon consistent with acute diverticulitis. No drainable abscesses or pneumoperitoneum. No adnexal masses. Uterus appears normal. Moderate degenerative disk disease with T11 mild compression deformity. Impression: 1. Acute diverticulitis of the sigmoid colon. 2. No CT evidence of appendicitis, drainable abscess, or bowel obstruction. Preliminary report given to Emergency Department physician, Daren Haas MD at 0158 hours, 2018. DR1. Final report concurs with initial preliminary interpretation. Dictated By: Mark Mendes Assessment & Plan Assessment: 68-year-old female with past medical history significant for GERD, vertigo, HTN , history of diverticulosis in the sigmoid colon in 2016 who presents emergency department with the complaints of significant left lower quadrant abdominal pain. #Diverticulitis (Acute) - sigmoid colon. This is patient's 2nd episode. She reports this is more severe than the previous episode. Patient is highly considering follow-up with surgery for additional discussion regarding a sigmoidectomy. Advised patient this will likely be done on outpatient basis once her acute infectious process is under control. Patient agrees. For now will continue with Rocephin and Flagyl on given patient's antibiotic in consideration. Anticipate patient should be able to just resume her home medications of Levaquin and Flagyl upon discharge. #Intractable nausea vomiting - Zofran, add Phenergan. Advance diet as tolerated encourage oral hydration. # intractable abdominal pain - left lower quadrant. Patient is not a candidate for benzos relieve her spasm pain. In addition she is currently with active nausea/vomiting. Will try to get her with improved control of her nausea vomiting and subsequently focus on her spasm pain. Bentyl in hyoscyamine been ordered. Dilaudid p.r.n. Until patient can tolerate p.o.. #Liver lesion (Acute) - imaging studies reveal is stable lesion consistent with hemangioma. #GERD - will order Maalox and PPI. Symptoms exacerbated by nausea vomiting. #Constipation - bowel program. Prior to today patient has been trying to increase her soluble fiber. #Benign essential HTN - resume patient's Avapro when she is able to tolerate oral intake. For now hydralazine available p.r.n. By IV. FEN - IVF for additional 1 liter as requested by patient she feels dry and she is still having active vomiting. Will encourage oral hydration once her vomiting is under control. Electrolyte monitoring replacement if needed. Advance diet as tolerated start with clears. PPX-SCDs. Anticoagulation if patient should stay additional day. Cor status-full Disposition-patient admitted to observation status on med surge floor for continued pain management as well as treatment for nausea vomiting and abdominal pain.
--- NOTE | 2019-03-14 12:47 | ASMTCMCOM ---
CM Note CM Note Notes: Pt discussed in rounds and chart reviewed for discharge planning. Pt is a 68yr old adm during the night with abd pain, unable to eat or drink and nausea. Pt's presented to the ER last evening with same symptoms but worse. Pt with a history of GERD, Diverticulitis, vertigo hypertension, viral URI, benign liver lesion. Continues on IVF & pain management. Pt will likely discharge Home independently once medically cleared. PLAN: Home Independently. Date Signed: 03/14/2019 12:46 PM Electronically Signed By:Marita Krishnamurthy
--- NOTE | 2019-03-14 13:03 | ASMTLACE ---
TIM Acuity / Level of Answers: No Care: Did the patient have an inpatient admission? Comorbidities - select Answers: Other Notes: GERD, Diverticul all that apply # of Emergency department Answers: 1-2 visits in the last 6 months Score: 2 Date Signed: 03/14/2019 01:02 PM Electronically Signed By:Marita Krishnamurthy
--- NOTE | 2019-03-14 13:59 | HOSPPROG ---
Hospitalist Progress Note Assessment/Plan: 68-year-old female admitted with sigmoid diverticulitis #Diverticulitis (Acute) - sigmoid colon. This is patient's 2nd episode. patient started on levofloxacin and flagyl oral prior to coming in. Worsened and failed outpatient treatment. I reviewed her chart and CT. No evidence of sepsis, and labs WNL -continue rocephin and flagyl IV -likely transitionto Po in next 1-2 days -IVNS -pain control (minimize) Hypertension- in reviewing outpatient chart her physician just started her on avapro at 75-150mg depending on her BP. currently on PRN hydralazine for systolic over 170. #Intractable nausea vomiting - Zofran, add Phenergan. Advance diet as tolerated. encourage oral hydration. #Liver lesion (Acute) - imaging studies reveal is stable lesion consistent with hemangioma. #GERD - will order Maalox and PPI. Symptoms exacerbated by nausea vomiting. #Constipation - bowel program. Prior to today patient has been trying to increase her soluble fiber. #Benign essential HTN - resume patient's Avapro when she is able to tolerate oral intake. For now hydralazine available p.r.n. By IV. Fluids- NS Lytes- WNL Nutrition- sips Cor- Full Dispo- obs for diverticulitis. Subjective: patient thinks she is doing somewhat better. still ab pain. very tired. Objective: Vital Signs Temp Pulse Resp BP Pulse Ox 36.9 C 71 16 155/82 H 97 03/14/19 08:00 03/14/19 08:00 03/14/19 08:00 03/14/19 09:26 03/14/19 08:00 03/13/19 03/14/19 03/15/19 05:59 05:59 05:59 Intake Total 1201 Output Total 200 600 Balance 1001 -600 PT 12.9 SEC (12.0-15.0) 03/14/19 00:32 INR 1.01 (0.83-1.16) 03/14/19 00:32 - Physical Exam Constitutional: no apparent distress, appears nourished, not in pain Eyes: PERRL, anicteric sclera, EOMI Ears, Nose, Mouth, Throat: moist mucous membranes, hearing normal, ears appear normal, no oral mucosal ulcers Cardiovascular: regular rate and rhythym, no murmur, rub, or gallop Respiratory: no respiratory distress, no rales or rhonchi, clear to auscultation Gastrointestinal: normoactive bowel sounds, soft, non-tender abdomen, no palpable masses Genitourinary: no bladder fullness, no bladder tenderness, no renal bruits Skin: no rashes or abrasions, no fluctuance, no induration Musculoskeletal: full muscle strength, no muscle tenderness, normal joint ROM Neurologic: AAOx3, sensation intact bilaterally Psychiatric: interacting appropriately, not anxious, not encephalopathic, thought process linear Lymph, Heme, Immunologic: no cervical LAD, no supraclavicular LAD ICD10 Worksheet Patient Problems: Problems Problem Status Onset Diverticulitis Acute Liver lesion Acute Respiratory infection, upper Acute Syncope and collapse Acute
[2019-03-15] MEDS ORDERED: levOFLOXACIN 250 MG/DEXTROSE 50 ML IV SCH (02:00)
[2019-03-15] MEDS: ENOXAPARIN 40 MG/0.4 ML SYR SC SCH (08:32)
[2019-03-15] MEDS: PANTOPRAZOLE SODIUM 40 MG VIAL IVP SCH (08:33)
[2019-03-15] MEDS ORDERED: LACTULOSE 20 GM/30 ML UDCUP PO PRN (09:48)
[2019-03-15] MEDS ORDERED: BISACODYL 10 MG SUPP PR PRN (09:48)
[2019-03-15] MEDS ORDERED: POLYETHYLENE GLYCOL 3350 17 GM PKT PO PRN (09:48)
[2019-03-15] MEDS ORDERED: MAGNESIUM HYDROXIDE 30 ML UDCUP PO PRN (09:48)
[2019-03-15] MEDS: ONDANSETRON DISINTEGRATING 4 MG TAB PO PRN (13:54)
--- NOTE | 2019-03-15 14:32 | HOSPPROG ---
Hospitalist Progress Note Assessment/Plan: 68-year-old female admitted with sigmoid diverticulitis #Diverticulitis (Acute) - sigmoid colon. This is patient's 2nd episode. patient started on levofloxacin and flagyl oral prior to coming in. Worsened and failed outpatient treatment. I reviewed her chart and CT. No evidence of sepsis, and labs WNL. still with substantial pain. -continue rocephin and flagyl IV -IVNS -pain control (minimize) Hypertension- in reviewing outpatient chart her physician just started her on avapro at 75-150mg depending on her BP. currently on PRN hydralazine for systolic over 170. #Intractable nausea vomiting - Zofran, add Phenergan. Advance diet as tolerated. encourage oral hydration. #Liver lesion (Acute) - imaging studies reveal is stable lesion consistent with hemangioma. #GERD - will order Maalox and PPI. Symptoms exacerbated by nausea vomiting. #Constipation - bowel program. Prior to today patient has been trying to increase her soluble fiber. #Benign essential HTN - resume patient's Avapro when she is able to tolerate oral intake. For now hydralazine available p.r.n. By IV. Fluids- NS Lytes- WNL Nutrition- sips Cor- Full Dispo- obs for diverticulitis. Subjective: not taking oral well. thinks she needs IV Objective: Vital Signs Temp Pulse Resp BP Pulse Ox 36.9 C 53 L 16 167/84 H 93 03/15/19 11:36 03/15/19 11:36 03/15/19 11:36 03/15/19 11:36 03/15/19 11:36 03/14/19 03/15/19 03/16/19 05:59 05:59 05:59 Intake Total 1201 1150 Output Total 200 1950 800 Balance 1001 -800 -800 PT 12.9 SEC (12.0-15.0) 03/14/19 00:32 INR 1.01 (0.83-1.16) 03/14/19 00:32 - Physical Exam Constitutional: no apparent distress, appears nourished, not in pain Eyes: PERRL, anicteric sclera, EOMI Ears, Nose, Mouth, Throat: moist mucous membranes, hearing normal, ears appear normal, no oral mucosal ulcers Cardiovascular: regular rate and rhythym, no murmur, rub, or gallop Respiratory: no respiratory distress, no rales or rhonchi, clear to auscultation Gastrointestinal: normoactive bowel sounds, soft, non-tender abdomen, no palpable masses Genitourinary: no bladder fullness, no bladder tenderness, no renal bruits Skin: no rashes or abrasions, no fluctuance, no induration Musculoskeletal: full muscle strength, no muscle tenderness, normal joint ROM Neurologic: AAOx3, sensation intact bilaterally Psychiatric: interacting appropriately, not anxious, not encephalopathic, thought process linear Lymph, Heme, Immunologic: no cervical LAD, no supraclavicular LAD ICD10 Worksheet Patient Problems: Problems Problem Status Onset Diverticulitis Acute Liver lesion Acute Respiratory infection, upper Acute Syncope and collapse Acute
--- NOTE | 2019-03-15 16:34 | PDMN ---
Medical Necessity Medical necessity: Change to inpt as of 03/15/19 @ 1543, meets inpt criteria per MD order and MCG M-150, Diverticulitis, A-2 days, diverticulitis of sigmoid colon, recently treated as outpt w/oral levo and flagyl, presented w/worsening symptoms/failed outpt tx, intractable N/V, initially admitted as OBS, upgraded to inpt, still w/some nausea today requiring IV antiemetics, not tolerating PO, cont IVF, IV ABX's, elev BP, Hydralazine IV PRN. Est LOS>2Mn for ongoing med nec management of above.
[2019-03-15] MEDS: SENNOSIDES/DOCUSATE SODIUM TAB PO SCH (20:52)
[2019-03-15] MEDS ORDERED: IRBESARTAN 75 MG TAB PO SCH (21:00)
[2019-03-16 08:47] VITALS: BP 163/75
[2019-03-16] MEDS: ENOXAPARIN 40 MG/0.4 ML SYR SC SCH (08:57)
[2019-03-16] MEDS: SENNOSIDES/DOCUSATE SODIUM TAB PO SCH (08:57)
[2019-03-16] MEDS ORDERED: PANTOPRAZOLE SODIUM 40 MG TAB PO SCH (09:00)
[2019-03-16] MEDS: ONDANSETRON DISINTEGRATING 4 MG TAB PO PRN (13:33)
--- NOTE | 2019-03-16 14:54 | ASMTDCNOTE ---
Case Management Discharge Discharge Order Complete? Answers: Yes Patient to Obtain Answers: Independently Medications Transportation Arranged Answers: Family/Friends Family Notified Answers: Yes Discharge Comments Notes: Medically cleared fro independent discharge to home. No needs identified. CM available should needs arise. Date Signed: 03/16/2019 02:54 PM Electronically Signed By:Erin Dubose RN
--- NOTE | 2019-03-16 15:25 | PDDCSUM ---
Discharge Summary Discharge Summary: Discharge diagnosis Sigmoid diverticulitis Hypertension Abdominal pain Nausea and vomiting Hyponatremia The patient was admitted secondary to diverticulitis. She presented to the emergency room with abdominal pain and was empirically given levofloxacin and Flagyl and sent home. She re-presented to the emergency room saying she had failed outpatient treatment. A CT scan was obtained which showed mild sigmoid diverticulitis. She was started on IV Rocephin and Flagyl along with IV fluids. She had no white count or other electrolyte abnormalities. She was not able to tolerate oral. She was continued on IV antibiotics with antiemetics. Ventrally she was able to tolerate oral of food and liquids without problem. She was eating, drinking and able to go to the bathroom and so the decision was made to send her home. She was transitioned to oral levofloxacin with Flagyl to complete a 10 day course total of antibiotics. She was instructed to follow up with her primary care physician soon as possible to ensure resolution of her symptoms. Disposition Home independent New medications Patient already had a prescription for levofloxacin and Flagyl and was told to complete a course of 10 days total I spent over 30 min on the discharge of this patient
== END 2019-03-16 16:17 | disposition home or self-care (01) | DRG 392 ==
LOC: EDUNIT# → F1N 03:05 → OBSVTOIN 03-15 15:43
PROVIDERS: ADMIT Family Medicine; ATTEND Family Medicine
DX: K57.32 Diverticulitis of large intestine without perforation or abscess without bleeding (principal); E87.1 Hypo-osmolality and hyponatremia; K59.00 Constipation, unspecified; E86.9 Volume depletion, unspecified; I10 Essential (primary) hypertension; G43.909 Migraine, unspecified, not intractable, without status migrainosus; K21.9 Gastro-esophageal reflux disease without esophagitis; D18.09 Hemangioma of other sites
CPT/HCPCS: 96365; G0378; J0696; J1170; J1650; J2405; Q9967

== ENCOUNTER 2019-04-01 10:54 | Observation (INO) | payer OTHER ==
[2019-04-01] MEDS ORDERED: ONDANSETRON 4 MG/2 ML VIAL ONE (11:22)
[2019-04-01] MEDS ORDERED: ONDANSETRON 4 MG/2 ML VIAL IVP ONE (11:26)
--- NOTE | 2019-04-01 11:27 | EDPHY ---
H & P Time Seen by Provider: 04/01/19 11:03 HPI/ROS: Chief complaint. Back pain, dizzy, nausea HPI. 68-year-old female presents emergency department via EMS with multiple complaints. Back pain for 3 days. History of chronic back pain. Worse after bowel movement. Today somewhat dizzy and lightheaded. No abdominal pain. No fever. Nausea without vomiting. Using Tylenol for low back pain. No recent injury. No radiation to her legs. No leg weakness. No bowel or bladder symptoms. Admitted for diverticulitis March 14 with discharge March 16. Patient did not finish her Levaquin secondary to side effects. She has a history of vertigo. Patient experiencing occasional spasms ROS 10 systems were reviewed and negative with the exception of the elements mentioned in the history of present illness Past Medical/Surgical History: Hypertension, vertigo, migraine, GERD, diverticulitis Social History: Single, nonsmoker, no alcohol Smoking Status: Never smoked Physical Exam: General Appearance: Alert well-developed female mild distress vital signs significant for blood pressure 174/105 Eyes: Pupils equal and round no pallor or injection. ENT, Mouth: Mucous membranes are moist. Respiratory: There are no retractions, lungs are clear to auscultation. Cardiovascular: Regular rate and rhythm. Gastrointestinal: Abdomen is soft and nontender, no masses, bowel sounds normal. Neurological: Awake and alert, sensory and motor exams grossly normal. Skin: Warm and dry, no rashes. Musculoskeletal: Neck is supple nontender. Mild diffuse tenderness to the low back Extremities symmetrical, full range of motion. Psychiatric: Patient is oriented X 3, there is no agitation. Constitutional: Initial Vital Signs Temperature (C) 36.6 C 04/01/19 10:56 Heart Rate 75 04/01/19 10:56 Blood Pressure 174/105 H 04/01/19 10:56 O2 Sat (%) 98 04/01/19 10:56 O2 Delivery Mode Room Air Allergies/Adverse Reactions: azithromycin Allergy (Verified 03/14/19 00:29) Vomiting gadobenate dimeglumine [From Multihance] Allergy (Verified 03/14/19 00:29) Vomiting midazolam HCl [From Versed] Allergy (Verified 03/14/19 00:29) Loss of consciousness Penicillins Allergy (Verified 03/14/19 00:29) Itching "Very drug sensitive" Allergy (Uncoded 03/14/19 00:29) pain medications Allergy (Uncoded 03/14/19 00:29) Vomiting Home Medications: Medication Instructions Recorded Ascorbic Acid [Vitamin C 500 mg 1,000 mg PO BID 03/14/19 (*)] C/E/Zn/Cu/OM3/DHA/EPA/LUT/ZEAX 1 each PO BID 03/14/19 [Preservision Areds 2 Softgel] Cholecalciferol Vit D3 [Vitamin D3 3,000 units PO DAILY 03/14/19 (*)] Glucosamine/Chondroitin 1 each PO DAILY 03/14/19 [Glucosamine/Chondroitin (*)] Irbesartan [Avapro 75 mg (*)] 37.5 mg PO DAILY 03/14/19 [place]-3 Fatty Acids [Fish Oil 1000 2,000 mg PO BID 03/14/19 mg (*)] Psyllium Husk (with Sugar) 1 each PO DAILY 03/14/19 [Metamucil Packet] Acetaminophen [Tylenol ES 500 mg 1,000 mg PO BID 04/01/19 (*)] Aspirin [Aspirin 81mg (*)] 81 mg PO HS 04/01/19 Medical Decision Making - Diagnostics EKG Interpretation: EKG interpreted by me shows normal sinus rhythm normal interval and axis. QRS is normal. There is some lateral ST depression in leads V4, 5, 6. This is somewhat different than previous EKG April 2016. Current EKG heart rate is 64 Procedures: IV normal saline, Zofran IV ED Course/Re-evaluation: Serial evaluations patient continues to be off balance and dizzy. She feels she needs help using the bathroom and getting to the bathroom. Patient lives by herself. She is concerned about being home alone. I consulted discussed the case with Dr. Gresham, hospitalist, who agrees to the admission Differential Diagnosis: I considered acute coronary syndrome. Recent hospitalization for diverticulitis but patient does not have abdominal pain. Her neurologic exam is otherwise normal. - Data Points Laboratory Results: Laboratory Results 04/01/19 11:20 04/01/19 11:20 04/01/19 04/01/19 04/01/19 13:49 13:14 13:03 WBC RBC Hgb Hct MCV MCH MCHC RDW Plt Count MPV Neut % (Auto) Lymph % (Auto) Patrick % (Auto) Eos % (Auto) Baso % (Auto) Nucleat RBC Rel Count Absolute Neuts (auto) Absolute Lymphs (auto) Absolute Monos (auto) Absolute Eos (auto) Absolute Basos (auto) Absolute Nucleated RBC Immature Gran % Immature Gran # Sodium Potassium Chloride Carbon Dioxide Anion Gap BUN Creatinine Estimated GFR Glucose Calcium Total Bilirubin Conjugated Bilirubin Unconjugated Bilirubin AST ALT Alkaline Phosphatase POC Troponin I 0.00 ng/mL ng/mL 0.00 ng/mL ng/mL (0.00-0.08) (0.00-0.08) Total Protein Albumin Lipase Urine Color COLORLESS Urine Appearance CLEAR Urine pH 6.0 (5.0-7.5) Ur Specific [place] 1.002 (1.002-1.030) Urine Protein NEGATIVE (NEGATIVE) Urine Ketones TRACE H (NEGATIVE) Urine Blood NEGATIVE (NEGATIVE) Urine Nitrate NEGATIVE (NEGATIVE) Urine Bilirubin NEGATIVE (NEGATIVE) Urine Urobilinogen NEGATIVE EU EU (0.2-1.0) Ur Leukocyte Esterase NEGATIVE (NEGATIVE) Urine RBC NONE SEEN /hpf /hpf (0-3) Urine WBC 0-1 /hpf /hpf (0-3) Ur Epithelial Cells NONE SEEN /lpf /lpf (NONE-1+) Urine Glucose NEGATIVE (NEGATIVE) 04/01/19 04/01/19 11:20 11:20 WBC 6.60 10^3/uL 10^3/uL (3.80-9.50) RBC 4.95 10^6/uL 10^6/uL (4.18-5.33) Hgb 15.3 g/dL g/dL (12.6-16.3) Hct 45.5 % % (38.0-47.0) MCV 91.9 fL fL (81.5-99.8) MCH 30.9 pg pg (27.9-34.1) MCHC 33.6 g/dL g/dL (32.4-36.7) RDW 12.6 % % (11.5-15.2) Plt Count 228 10^3/uL 10^3/uL (150-400) MPV 9.9 fL fL (8.7-11.7) Neut % (Auto) 63.9 % % (39.3-74.2) Lymph % (Auto) 28.3 % % (15.0-45.0) Patrick % (Auto) 6.7 % % (4.5-13.0) Eos % (Auto) 0.3 % L % (0.6-7.6) Baso % (Auto) 0.6 % % (0.3-1.7) Nucleat RBC Rel Count 0.0 % % (0.0-0.2) Absolute Neuts (auto) 4.22 10^3/uL 10^3/uL (1.70-6.50) Absolute Lymphs (auto) 1.87 10^3/uL 10^3/uL (1.00-3.00) Absolute Monos (auto) 0.44 10^3/uL 10^3/uL (0.30-0.80) Absolute Eos (auto) 0.02 10^3/uL L 10^3/uL (0.03-0.40) Absolute Basos (auto) 0.04 10^3/uL 10^3/uL (0.02-0.10) Absolute Nucleated RBC 0.00 10^3/uL 10^3/uL (0-0.01) Immature Gran % 0.2 % % (0.0-1.1) Immature Gran # 0.01 10^3/uL 10^3/uL (0.00-0.10) Sodium 136 mEq/L mEq/L (135-145) Potassium 3.9 mEq/L mEq/L (3.5-5.2) Chloride 102 mEq/L mEq/L (97-110) Carbon Dioxide 22 mEq/l mEq/l (22-31) Anion Gap 12 mEq/L mEq/L (6-14) BUN 11 mg/dL mg/dL (7-23) Creatinine 0.7 mg/dL mg/dL (0.6-1.0) Estimated GFR > 60 Glucose 103 mg/dL H mg/dL (70-100) Calcium 9.6 mg/dL mg/dL (8.5-10.4) Total Bilirubin 0.6 mg/dL mg/dL (0.1-1.4) Conjugated Bilirubin 0.0 mg/dL mg/dL (0.0-0.5) Unconjugated Bilirubin 0.6 mg/dL mg/dL (0.0-1.1) AST 22 IU/L IU/L (14-46) ALT 35 IU/L IU/L (9-52) Alkaline Phosphatase 103 IU/L IU/L (38-126) POC Troponin I Total Protein 7.6 g/dL g/dL (6.3-8.2) Albumin 4.7 g/dL g/dL (3.5-5.0) Lipase 142 IU/L IU/L (23-300) Urine Color Urine Appearance Urine pH Ur Specific [place] Urine Protein Urine Ketones Urine Blood Urine Nitrate Urine Bilirubin Urine Urobilinogen Ur Leukocyte Esterase Urine RBC Urine WBC Ur Epithelial Cells Urine Glucose Medications Given: Discontinued Medications Ondansetron HCl (Zofran) 4 mg IVP EDNOW ONE Stop: 04/01/19 11:27 Last Admin: 04/01/19 11:29 Dose: 4 mg Point of Care Test Results: Chemistry 04/01/19 04/01/19 13:49 13:03 POC Troponin I 0.00 ng/mL ng/mL 0.00 ng/mL ng/mL (0.00-0.08) (0.00-0.08) Departure - Departure Disposition: [facility] Inpatient Acute Clinical Impression: Near syncope Condition: Good Referrals: Ramandeep Renteria MD [Primary Care Provider] - As per Instructions
[2019-04-01 11:55] LABS: PLATELET COUNT 228 10^3/uL (150-400)
--- NOTE | 2019-04-01 13:16 | CPEKG ---
Test Reason : OPEN Blood Pressure : / mmHG Vent. Rate : 087 BPM Atrial Rate : 087 BPM P-R Int : 166 ms QRS Dur : 105 ms QT Int : 410 ms P-R-T Axes : 018 -44 059 degrees QTc Int : 494 ms Sinus rhythm Inferior infarct, old Anterior infarct, old Confirmed by Ran Doss ([id number]) on 04/01/2019 1:15:17 PM Referred By: RAN DOSS Confirmed By:Ran Doss
--- NOTE | 2019-04-01 14:38 | CPEKG ---
Test Reason : OPEN Blood Pressure : / mmHG Vent. Rate : 064 BPM Atrial Rate : 064 BPM P-R Int : 118 ms QRS Dur : 083 ms QT Int : 435 ms P-R-T Axes : 039 053 006 degrees QTc Int : 449 ms Sinus rhythm Borderline T abnormalities, diffuse leads Confirmed by Ran Doss ([id number]) on 04/01/2019 2:38:03 PM Referred By: RAN DOSS Confirmed By:Ran Doss
[2019-04-01] MEDS ORDERED: METHOCARBAMOL 750 MG TAB PO PRN ×2 (15:25→19:56)
[2019-04-01] MEDS ORDERED: ACETAMINOPHEN 325 MG TAB PO PRN (15:25)
[2019-04-01] MEDS ORDERED: ONDANSETRON 4 MG/2 ML VIAL IVP PRN (15:25)
--- NOTE | 2019-04-01 16:02 | GHP ---
[f rep st] HISTORY AND PHYSICAL DATE OF ADMISSION: 04/01/2019 CHIEF COMPLAINT: Lightheadedness. HISTORY OF PRESENT ILLNESS: This is a 68-year-old female who presented to the emergency department b y EMS after she felt like she was going to pass out earlier today. The patient was discharged from [facility] on 03/16/2019 after being admitted for diverticulitis. Since hospital discharge, she has been doing fairly well. She has been taking Metamucil at home. On Sunday, she had what she describes as a very large bowel movement where she lost 5 pounds of body weight. She immediately developed what she describes as a low back spasm after this defecation. Since Sunday, the patient has had back pain off and on. She has been taking Tylenol with minimal rel ief. Today, she had what she describes as 10/10 localized low back pain to the point where she could not stand or walk. She became very nauseous. She called her primary care doctor's office who advis ed her to proceed to the emergency department for further workup and evaluation. The patient tells jose enrique sterling that she has a very sensitive stomach and becomes nauseous very easily. She restarted Avapro for h er blood pressure 2 weeks ago. She has not been taking her blood pressure. She denies any lower ext remity weakness. She denies any chest pain. She denies any fevers or chills. Her abdominal pain cai s improved since being treated for diverticulitis. However, she did not finish the prescribed course of levofloxacin since she thought she was allergic to the medication but did complete treatment with Flagyl. PAST MEDICAL HISTORY: 1. Recent hospitalization for diverticulitis. See above. 2. Vertigo. 3. GERD. 4. Hypertension. PAST SURGICAL HISTORY: Right toe surgery x2, right breast lumpectomy for fibroadenoma. HOME MEDICATIONS: Reviewed. Refer to [facility] [place] for details. ALLERGIES: 1. Azithromycin causes vomiting. 2. Gadobenate causes vomiting. 3. Midazolam causes loss of consciousness. 4. Penicillin caused itching. SOCIAL HISTORY: The patient lives alone independently. She denies any alcohol, tobacco or illicit d rug use. Code status is full. FAMILY HISTORY: Reviewed. Significant for grandfather with diabetes. Sister and grandmother with b reast cancer. REVIEW OF SYSTEMS: Comprehensive 10-point review of systems was done and is negative, except for as mentioned in HPI and below. PHYSICAL EXAM: VITAL SIGNS: Blood pressure 183/88, pulse of 69, respiratory rate 16, O2 sat 96% on room air. Temperature afebrile. GENERAL: No acute distress. HEAD: Normocephalic, atraumatic. EY ES: PERRLA. Sclerae anicteric. MOUTH: Moist mucous membranes. NECK: Supple. No lymphadenopathy . CARDIOVASCULAR: S1, S2. No murmurs, rubs, clicks, gallops. No JVD. No lower extremity edema. PULMONARY: Lungs are clear. No wheezes, rales or rhonchi. ABDOMEN: Soft, nontender, nondistended. No guarding or rebound tenderness. Normoactive bowel sounds. EXTREMITIES: No clubbing or cyanosi s. NEURO: Cranial nerves 2-12 grossly intact. No focal motor or sensory deficits. Straight leg ra ising is negative bilaterally. BACK: There is some tenderness to palpation in the paraspinal lumbar musculature at L3-L4 with moderate spasm. SKIN: Clear. No rashes. DIAGNOSTICS: WBC 6.6, hemoglobin 15.3, hematocrit 45.5, platelets 228. Sodium 136, potassium 3.9, c hloride 102, BUN 11, creatinine 0.7, glucose 103. Troponin was negative. LFTs unremarkable. UA: T race ketones. EKG shows Q-waves in V1, as well as lead III, V2 and V3. ASSESSMENT AND PLAN: This is a 68-year-old female presenting with: 1. Presyncope, most likely due to nausea in the setting of acute lumbar pain due to muscle spasm. P darby: The patient will be placed in observation and closely monitored. Will order physical therapy e valuation. Will order p.r.n. cyclobenzaprine at a low dose but this should be used in caution since the patient has a history of severe drug sensitivities. 2. Recently treated diverticulitis that appears to be resolved. Plan: the patient can be on a regul ar diet with daily Metamucil supplementation. 3. History of hypertension, recently started Avapro. Plan: I wonder if her blood pressure medicati on this morning may have predisposed her to feeling presyncopal. For now, we will hold her Avapro. Will obtain an echocardiogram to evaluate for LVH and cardiac function given her abnormal EKG. 4. The patient requests to be full code status. /[id number]/MODL
[2019-04-01] MEDS: ASPIRIN 81 MG CHEWABLE TAB PO SCH (20:13)
[2019-04-01] MEDS: ACETAMINOPHEN 500 MG TAB PO SCH (20:42)
[2019-04-01] MEDS: ASCORBIC ACID 500 MG TAB PO SCH (20:43)
[2019-04-01] MEDS: OMEGA-3 FATTY ACIDS 1,000 MG CAP PO SCH (20:43)
[2019-04-01] MEDS: PRESERVISION AREDS2 FORMULA EYE VIT 1 EACH PO SCH (20:43)
--- NOTE | 2019-04-01 20:49 | HOSPPROG ---
Hospitalist Progress Note Assessment/Plan: Per nighttime RN, pt requested Robaxin dose be halved from 750 to 375mg PO TID Objective: Vital Signs Temp Pulse Resp BP Pulse Ox 36.9 C 62 18 174/88 H 94 04/01/19 19:29 04/01/19 19:29 04/01/19 19:29 04/01/19 19:29 04/01/19 19:29 03/31/19 04/01/19 04/02/19 05:59 05:59 05:59 Intake Total 500 Balance 500 ICD10 Worksheet Patient Problems: Problems Problem Status Onset Near syncope Acute Diverticulitis Acute Liver lesion Acute Respiratory infection, upper Acute Syncope and collapse Acute
[2019-04-02] MEDS: PRESERVISION AREDS2 FORMULA EYE VIT 1 EACH PO SCH ×2 (09:32→21:01)
[2019-04-02] MEDS: ASCORBIC ACID 500 MG TAB PO SCH ×2 (09:32→21:02)
[2019-04-02] MEDS: CHOLECALCIFEROL VIT D3 1,000 UNITS TAB PO SCH (09:32)
[2019-04-02] MEDS: GLUCOSAMINE/CHONDROITIN CAP PO SCH (09:33)
[2019-04-02] MEDS: OMEGA-3 FATTY ACIDS 1,000 MG CAP PO SCH ×2 (09:38→21:02)
[2019-04-02] MEDS: ACETAMINOPHEN 500 MG TAB PO SCH ×2 (10:26→21:01)
[2019-04-02] MEDS: PSYLLIUM METAMUCIL 1 PKT PO SCH (11:48)
--- NOTE | 2019-04-02 12:52 | HOSPPROG ---
Hospitalist Progress Note Assessment/Plan: 68-year-old female presents emergency room complaints of feeling faint. 1st encounter. Chart reviewed. Discussed the patient's care with Cardiology. # presyncope -etiology likely a vagal response -seems to be associated with eating -echocardiogram pending # hypertension -patient claims adverse reaction to all antihypertensive medications -requesting cardiology consult -discussed with Dr. Cat Babcock # history of diverticulitis -appears to be resolved -no antibiotic therapy -is on Metamucil supplementation # back pain -patient states she has had this before -feels like spasm in nature -continue Robaxin # disposition -unclear -patient continues to be nauseous with dizziness -continue in-hospital evaluation Subjective: Still feeling nauseous. Continues to have dizziness. Unwilling to take medications at this time. Objective: Vital Signs Temp Pulse Resp BP Pulse Ox 36.8 C 67 19 183/87 H 92 04/02/19 08:19 04/02/19 08:19 04/02/19 08:19 04/02/19 08:19 04/02/19 08:19 04/01/19 04/02/19 04/03/19 05:59 05:59 05:59 Intake Total 1150 Balance 1150 - Physical Exam Constitutional: no apparent distress, appears nourished, not in pain Eyes: PERRL, anicteric sclera, EOMI Ears, Nose, Mouth, Throat: moist mucous membranes, hearing normal, ears appear normal Cardiovascular: No JVD, No tachycardia, No edema Respiratory: no respiratory distress, no rales or rhonchi, reduced air movement Gastrointestinal: normoactive bowel sounds, No tenderness, No ascites Skin: warm, normal color, No mottled Musculoskeletal: normal joint ROM, no joint effusions, generalized weakness Neurologic: AAOx3 Psychiatric: not encephalopathic, anxious, poor insight, poor judgement ICD10 Worksheet Patient Problems: Problems Problem Status Onset Syncope and collapse Acute Diverticulitis Acute Respiratory infection, upper Acute Liver lesion Acute Near syncope Acute
--- NOTE | 2019-04-02 14:00 | GCON ---
[f rep st] CONSULTATION CARDIOLOGY CONSULTATION DATE OF CONSULTATION: 04/02/2019 PRIMARY ORTHOTIC FITTER: Dr. Cat Babcock. PRIMARY CARE PHYSICIAN: Dr. Ramandeep Renteria. We were asked by Janet Son of Hospital Medicine to evaluate the patient for her nausea, lightheade dness, and presyncope. HPI: The patient is a 68-year-old female with hypertension, recent diverticulitis, and recent influe nza. She was admitted 03/15 through 03/16/2019 for diverticulitis. She was given Flagyl and Levaqui n at the time of discharge. She felt she was having a reaction to the Levaquin and therefore stopped it and continued only on Flagyl. Last week she also resumed her Avapro at 150 mg p.o. daily. With this, she had some nausea and presyncope and jaw tightness. This was coupled with a feeling like she could not ambulate. She was therefore advised to decrease her Avapro to 37.5 mg p.o. daily. On Sun, which was 5 days ago, she had a very large BM and feels that she lost 5 pounds of body weight. After that, she had pretty severe back spasms. She continues to have elevated blood pressures and also reports desaturation events where her oxygen has dropped as low as 85. Upon my review of the O2 saturations she has been saturating well on room air. This morning she was eating breakfast and dev eloped nausea, presyncope. Blood pressure with that was measured to be 183/87. PAST MEDICAL HISTORY: 1. Hypertension. 2. Diverticulitis. 3. History of vertigo. 4. History of gastroesophageal reflux disease. SURGERIES: Previous toe surgery and right breast lumpectomy. HOME MEDICATIONS: Vitamin D3, aspirin, vitamin C, Tylenol, Metamucil, fish oil, irbesartan, and gluc osamine with chondroitin. ALLERGIES: Listed as erythromycin, gadobenate, levofloxacin, midazolam, penicillins, and pain medica tions. Additionally, she has had sensitivities to multiple antihypertensives, which she reports pret ty severe hypotension with them. FAMILY HISTORY: Mother had CHF. SOCIAL HISTORY: She denies any alcohol or tobacco. REVIEW OF SYSTEMS: As per HPI. A complete 10-point review of systems was obtained. PHYSICAL EXAMINATION: VITAL SIGNS: BP of 183/87, heart rate of 67, respirations 19, O2 saturation 9 2% on room air, temp of 98.2 degrees Fahrenheit. GENERAL: She is a very pleasant female, in no appa rent distress. HEENT: Normocephalic, atraumatic. Eyes are without scleral icterus. Mucous membran es moist. HEART: Regular rate and rhythm. LUNGS: Clear. ABDOMEN: Soft with normoactive bowel so unds. SKIN: Warm and dry. NEURO: AAO x3. LABORATORY: CBC with WBC 6.6, hemoglobin 15.3, hematocrit 45.5, platelet count of 228. BMP with sod ium 136, potassium 3.9, chloride 102, CO2 22, BUN 11, creatinine 0.7, glucose 103. Liver functions a re within normal limits. Troponin is negative. ECG from her chart cannot be viewed. 02/25/2016 stress test from our office was a stress echo. She exercised for 9 minutes and had normal LVEF augmentation with exertion. I have spoken to Janet Son about this patient. IMPRESSION AND PLAN: 68-year-old female with hypertension and recent diverticulitis. She comes in w ith nausea and presyncope. 1. Nausea, presyncope. This is likely a vagal reaction to her pain. We will order orthostatic oral ls on her. She expresses that she has had multiple sensitivities to different antihypertensives that were tried on her in the past. Once she stabilizes from her back pain and is able to take good p.o. intake she can likely just resume her Avapro. 2. Hypertension. Her blood pressure does not appear to be well controlled. We will obtain orthosta tic vitals to rule out orthostasis as causing her nausea and lightheadedness. Will allow permissive hypertension as she recovers from her recent diverticulitis and also has improvement in her back pain . /[id number]/MODL
--- NOTE | 2019-04-02 14:52 | ECHO ---
[email or web address] [address] Main: [phone] Echocardiography Examination Transthoracic Name: ABHIJEET ALBA MR#: [id number] Study Date: 04/02/2019 Study Time: 02:08 PM Date of : 1950 Age: 68 year(s) Height: 162.6 cm (64 in.) Weight: 65.77 kg (145 lb.) BSA: 1.71 m2 Gender: Female Examination: Echo Contrast: Image Quality: Adequate Rhythm: Heart Rate: BP: 175 mmHg/92 mmHg Indication: Presyncope eval for LVH Procedure Staff Referring Physician: Abstract Writer: Ave Stratton [facility] Reading Physician: Vidal Kwan MD Requesting Provider: Ordering Physician: Joel Gresham Indication: Presyncope eval for LVH Measurements Chambers AV/MV Label Value Normal Value Label Value Normal Value LVDd, 2D 5.2 cm (3.9cm - 5.3cm) AV PGmean 3 mmHg LVDs, 2D 2.8 cm (2.1cm - 4cm) AV Vmax 1.37 m/s IVSd, 2D 0.6 cm (0.6cm - 1.1cm) MV E Vmax 0.55 m/s LVPWd, 2D 0.7 cm MV A Vmax 0.67 m/s LVEF, 2D 77 % (54% - 74%) MV E/A 0.82 LA Volume, BP 50 ml (22ml - 52ml) MV E/E' lateral 6.1 LADs, 2D 3.9 cm (2.7cm - 3.8cm) MV E/E' septal 6.2 (0.45 - 1.25) LAESV index, BP 29.2 ml/m2 MV E' septal 0.09 m/s Additional Vessels MV E' lateral 0.09 m/s Label Value Normal Value MV E/E' mean 6.11 AoAsc 2.8 cm MV E' mean 0.09 m/s AoRoot, MM 2.9 cm (2.2cm - 3.7cm) TV/PV Label Value Normal Value RA Pressure 5 mmHg RVSP 36 mmHg TR Pmax 31 mmHg TR Vmax 2.77 m/s Patient: ABHIJEET ALBA Study Date: 04/02/2019 Page 1 of 3 02:08 PM Conclusions (1) Left ventricular systolic ejection fraction was normal (65%) - normal wall motion - no LVH (2) Normal RV size and function (3) Normal atrial dimensions (4) Mild MR (5) Trileaflet aortic valve without appreciable insufficiency or sclerosis (6) Grossly normal tricuspid valve - RVSP was estimated to be 36 mm HG (7) Poor visualization of the pulmonic valve (8) No pericardial effusion Findings Left Ventricle: Left ventricle is normal in size. Normal global systolic left ventricular function. EF range is estimated at 65 % - 70 %. The LV wall thickness is at the upper limits of normal. There are no regional wall motion abnormalities. Left ventricular diastolic function parameters are normal. IVS: The septum is intact. Right Ventricle: Normal size right ventricle. Right ventricular systolic function is normal. Left Atrium: The left atrium is normal in size. IAS: Normal appearing atrial septum. Right Atrium: The right atrium is normal in size. Mitral Valve: Mitral valve appears structurally normal. Mild mitral regurgitation. No mitral valve stenosis. Aortic Valve: Aortic leaflets exhibit normal cuspal separation. Trivial aortic regurgitation is present. There is no aortic stenosis. The aortic valve is trileaflet. Tricuspid Valve: Tricuspid valve leaflets are normal in appearance and function. Trivial tricuspid regurgitation. No tricuspid valve stenosis. Right Ventricular systolic pressure is measured at 36 mmHg. Pulmonary artery pressure normal. Pulmonic Valve: Pulmonic leaflets exhibit normal cuspal separation. No pulmonic valve regurgitation is evident. There is no pulmonic valve stenosis. Aorta: The aorta is normal. The aortic root size in M-mode measures 2.9 cm. The ascending aorta measures 2.8 cm. Aorta Measurements AoRoot, MM is 2.9 cm. Pulmonary Artery: The pulmonary artery morphology appears normal. IVC: The inferior vena cava is normal in size and course. Pericardium: A pericardial fat pad is present. No pericardial effusion. No pleural effusion present. Exam Details Procedure Ordered: Echo Procedure Status: Routine study Patient: ABHIJEET ALBA Study Date: 04/02/2019 Page 2 of 3 02:08 PM Image Quality: Adequate Facility Location: Cardiac Echo 1 (No Signature Object) Patient: ABHIJEET ALBA Study Date: 04/02/2019 Page 3 of 3 02:08 PM [id number]
--- NOTE | 2019-04-02 15:03 | ASMTCMCOM ---
CM Note CM Note Notes: Spoke with RN, pt admitted for dizziness. She was recently dc'd home on 03/16 for diverticulitis. Pt lives alone, PT ordered. DC Plan: TBD Date Signed: 04/02/2019 03:02 PM Electronically Signed By:Sharlene Bañuelos RN
[2019-04-02] MEDS: ASPIRIN 81 MG CHEWABLE TAB PO SCH (21:01)
--- NOTE | 2019-04-03 08:55 | HOSPPROG ---
Hospitalist Progress Note Assessment/Plan: 68-year-old female presents emergency room complaints of feeling faint. 1st encounter. Chart reviewed. Discussed the patient's care with Cardiology. # presyncope -etiology likely a vagal response -seems to be associated with eating -echocardiogram stable -reviewed her care w cardiology-no clear cut etiology -suspect her symptoms are more related to being lightheaded and that she vagal is causing her to feel she will pass out # hypertension -patient claims adverse reaction to all antihypertensive medications -she can resume her Avapro, she is on very low dose because she reacts to medications # history of diverticulitis -appears to be resolved -no antibiotic therapy -is on Metamucil supplementation # nausea -this has been ongoing -Zofran has helped, encouraged her to try cinnamon to see if this helps as well as a K-pad # back pain -Robaxin has helped -will get back x-rays # plan. Will do a trial of Protonix and back x-rays. Will see how she does throughout the day. On discharge she will need prescriptions for Robaxin, Zofran, Protonix, and a script for physical therapy Subjective: Arelis said she was feeling poorly this morning and is worried about being discharged too soon Objective: Vital Signs Temp Pulse Resp BP Pulse Ox 36.5 C 55 L 18 157/78 H 95 04/03/19 08:15 04/03/19 08:15 04/03/19 08:15 04/03/19 08:15 04/03/19 08:15 04/02/19 04/03/19 04/04/19 05:59 05:59 05:59 Intake Total 1150 Balance 1150 - Physical Exam Constitutional: no apparent distress, appears nourished, not in pain Eyes: PERRL Ears, Nose, Mouth, Throat: hearing normal Cardiovascular: regular rate and rhythym Respiratory: no respiratory distress Gastrointestinal: normoactive bowel sounds Skin: warm Neurologic: AAOx3 Psychiatric: interacting appropriately ICD10 Worksheet Patient Problems: Problems Problem Status Onset Near syncope Acute Diverticulitis Acute Liver lesion Acute Respiratory infection, upper Acute Syncope and collapse Acute
[2019-04-03] MEDS: ACETAMINOPHEN 500 MG TAB PO SCH ×3 (09:03→15:30)
[2019-04-03] MEDS: OMEGA-3 FATTY ACIDS 1,000 MG CAP PO SCH (09:03)
[2019-04-03] MEDS: CHOLECALCIFEROL VIT D3 1,000 UNITS TAB PO SCH (09:03)
[2019-04-03] MEDS: GLUCOSAMINE/CHONDROITIN CAP PO SCH (09:03)
[2019-04-03] MEDS: ASCORBIC ACID 500 MG TAB PO SCH (09:03)
[2019-04-03] MEDS: PRESERVISION AREDS2 FORMULA EYE VIT 1 EACH PO SCH (09:10)
[2019-04-03] MEDS: PSYLLIUM METAMUCIL 1 PKT PO SCH (09:10)
[2019-04-03] MEDS ORDERED: PANTOPRAZOLE SODIUM 40 MG TAB PO SCH (10:15)
[2019-04-03 12:34] VITALS: BP 141/83
--- NOTE | 2019-04-03 19:40 | GDS ---
[f rep st] DISCHARGE SUMMARY DISCHARGE DIAGNOSES: 1. Presyncopal event. 2. Hypertension. 3. History of diverticulitis. 4. Nausea. 5. Back pain. CONSULTATION: MARY Mock, with Cardiology. HISTORY: Briefly, the patient is a 68-year-old woman who presented to the emergency department after calling EMS. She felt like she was going to pass out earlier in the day. She was recently discharged from [facility] on 03/16 after being admitted for diverticulitis. Since this past Sunday , she was having some back pain. She had taken some Tylenol with minimal relief. Then, she became very nauseous. She called her primary care provider who advised her to proceed to the ER for further evaluation. She says that she is very sensitive to medications. Today, she is feeling markedly better. She will be discharged home. HOSPITAL COURSE PER PROBLEM: 1. Presyncopal. This is likely a vagal response and associated with eating. Her echocardiogram is stable, none further. 2. Hypertension. She says she has had adverse reactions to almost all antihypertensives. She will resume her Avapro. She is on a very low dose. 3. History of diverticulitis, stable. 4. Nausea, ongoing. Rayshawn has helped. Will give her a prescription for this. 5. Back pain. Robaxin has helped her. The back x-ray showed degenerative disk disease but nothing acute. DISCHARGE CONDITION: Stable. Blood pressure is 141/83. Heart rate is 63. Respiratory rate is 16. O2 sats on room air 92%. Temperature is 36.4 Celsius. MEDICATIONS AT DISCHARGE: Please see the EMR. DISCHARGE INSTRUCTIONS: 1. To try other therapies for her nausea in the morning, including a hot water bottle and eating cinnamon toast. 2. To get physical therapy to help her strengthen her core. /[id number]/MODL MTDD
== END 2019-04-03 16:49 | disposition home or self-care (01) ==
LOC: INTOOBSV 15:08 → F3E 16:21
PROVIDERS: ADMIT Family Medicine; ATTEND Family Medicine
DX: R55 Syncope and collapse (principal); R11.0 Nausea; M54.5 Low back pain; I10 Essential (primary) hypertension; K57.30 Diverticulosis of large intestine without perforation or abscess without bleeding; K21.9 Gastro-esophageal reflux disease without esophagitis
CPT/HCPCS: 72100; 93005; 93306; 96374; 96376; 97161; 99285; G0378; J2405; 84484-ER

== ENCOUNTER 2019-04-13 11:11 | Observation (INO) | payer OTHER ==
[2019-04-13] MEDS ORDERED: NS 1,000 ML IV ONE ×2 (11:29)
[2019-04-13] MEDS ORDERED: PROMETHAZINE HCL 25 MG/ML INJ IVP ONE (11:29)
[2019-04-13] MEDS ORDERED: HYDROmorphONE/DILAUDID 2 MG/ML INJ IVP ONE (11:29)
--- NOTE | 2019-04-13 11:29 | EDPHY ---
H & P Stated Complaint: Multiple complaints: prev flu/diverticulitis, weak, near syncope Time Seen by Provider: 04/13/19 11:19 HPI/ROS: HPI: This is a 68-year-old female who presents with Chief Complaint: Multiple complaints: prev flu/diverticulitis, weak, near syncope Location: Generalized abdomen Quality: Pain and cramping Duration: Several weeks Signs and Symptoms: no fever, + nausea, + vomiting, no hematemesis, no blood in stool, no abdominal bloating, no diarrhea, no back pain, no urinary symptoms, no vaginal bleeding/discharge, no indigestion, no chest pain, no shortness of breath Timing: Worse this morning Severity: 07/05 Context: Patient has a history sigmoid colon diverticulitis, hypertension, ongoing chronic nausea, 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 She reports that she has had nausea and vomiting last episodes occurring around 11:00 p.m. She also had loose stools yesterday evening and "cleaned out." She reports that she was admitted on 04/01/2019 for presyncopal event and feels similar to that time of admission. She stop taking Robaxin for muscle spasms of her lower back as she thought this may be related to the nausea and vomiting. She reports that she is very sensitive to medications. She is followed by GI of the [facility] Dr. Pinedo. She also cut out gluten last week and has only been drinking broth. She is extremely frustrated and "wants a plan and not to be discharged home." Modifying Factors: See above Comment: ROS: A comprehensive 10 system review of systems is otherwise negative aside from elements mentioned in the history of present illness. MEDICAL/SURGICAL/SOCIAL HISTORY: Medical history: VERTIGO, MIGRAINE, diverticulitis Surgical history: R foot, R breast lumpectomy (fibroadenoma removal) Social history: Never smoked. Lives alone. Family history noncontributory. CONSTITUTIONAL: Talkative, well-appearing elderly white female, awake and alert , no obvious distress HEENT: Atraumatic and normocephalic, PERRL, EOMI. Nares patent; no rhinorrhea; no nasal mucosal edema. Tympanic membranes clear. Oropharynx clear, no exudate and moist pink mucosa. Airway patent. No lymphadenopathy. No meningismus. Cardiovascular: Normal S1/S2, regular rate, regular rhythm, without murmur rub or gallop. PULMONARY/CHEST: Symmetrical and nontender. Clear to auscultation bilaterally. Good air movement. No accessory muscle usage. ABDOMEN: Soft, nondistended, moderate right upper quadrant tenderness, moderate epigastric tenderness, moderate periumbilical tenderness, moderate left lower quadrant tenderness, no rebound, no guarding, no peritoneal signs, no masses or organomegaly. No CVAT. EXTREMITIES: 2/2 pulses, strength 5/5, no deformities, no clubbing, no cyanosis or edema. NEUROLOGICAL: no focal neuro deficits. GCS 15. SKIN: Warm and dry, no erythema. no rash. Good capillary refill. Source: Patient Exam Limitations: No limitations - Personal History Current Tetanus/Diphtheria Vaccine: Yes Tetanus Vaccine Date: less than ten yrs - Medical/Surgical History Hx Asthma: No Hx Chronic Respiratory Disease: No Hx Diabetes: No Hx Cardiac Disease: No Hx Renal Disease: No Hx Cirrhosis: No Hx Alcoholism: No Hx HIV/AIDS: No Hx Splenectomy or Spleen Trauma: No Other PMH: HTN, VERTIGO, MIGRAINE, diverticulitis. PSHx: R foot, R breast lumpectomy (fibroidadanomy) - Social History Smoking Status: Never smoked Constitutional: Initial Vital Signs Temperature (C) 37.0 C 04/13/19 11:15 Heart Rate 91 04/13/19 11:15 Respiratory Rate 16 04/13/19 11:15 Blood Pressure 191/102 H 04/13/19 11:15 O2 Sat (%) 96 04/13/19 11:15 O2 Delivery Mode Room Air Allergies/Adverse Reactions: azithromycin Allergy (Verified 04/13/19 11:15) Vomiting gadobenate dimeglumine [From Multihance] Allergy (Verified 04/13/19 11:15) Vomiting levofloxacin [From Levaquin] Allergy (Verified 04/13/19 11:15) midazolam HCl [From Versed] Allergy (Verified 04/13/19 11:15) Loss of consciousness Penicillins Allergy (Verified 04/13/19 11:15) Itching "Very drug sensitive" Allergy (Uncoded 03/14/19 00:29) pain medications Allergy (Uncoded 03/14/19 00:29) Vomiting Home Medications: Medication Instructions Recorded Ascorbic Acid [Vitamin C 500 mg 1,000 mg PO BID 03/14/19 (*)] C/E/Zn/Cu/OM3/DHA/EPA/LUT/ZEAX 1 each PO BID 03/14/19 [Preservision Areds 2 Softgel] Cholecalciferol Vit D3 [Vitamin D3 3,000 units PO DAILY 03/14/19 (*)] Glucosamine/Chondroitin 1 each PO DAILY 03/14/19 [Glucosamine/Chondroitin (*)] Irbesartan [Avapro 75 mg (*)] 37.5 mg PO DAILY 03/14/19 [place]-3 Fatty Acids [Fish Oil 1000 2,000 mg PO BID 03/14/19 mg (*)] Psyllium Husk (with Sugar) 1 each PO DAILY 03/14/19 [Metamucil Packet] Acetaminophen [Tylenol ES 500 mg 1,000 mg PO BID 04/01/19 (*)] Aspirin [Aspirin 81mg (*)] 81 mg PO HS 04/01/19 Methocarbamol [Robaxin 750 mg (*)] 375 mg PO TID PRN #30 tab 04/03/19 Ondansetron Odt [Zofran Odt] 4 mg PO Q8 PRN #21 tab 04/03/19 Herbals/Supplements -Info Only 1 ea PO DAILY 04/13/19 Medical Decision Making - Diagnostics Imaging Results: Imaging Impressions Abdomen Ultrasound 04/13/19 11:30 Impression: 1. No acute findings. 2. No significant change in multiple benign-appearing hepatic lesions, likely hemangiomas. Findings discussed with Amelia Santillan PA-C on April 13, 2019 at 1255 hours. ED Course/Re-evaluation: Vital signs reviewed and show elevated blood pressure. IV access, laboratory studies, urinalysis, abdominal ultrasound ordered Chart review: Last CT abdominal pelvis scan was performed on 03/14/2019 and showed I did acute diverticulitis of the sigmoid colon with 6 cm of pericolic inflammatory thickening and stranding in the mid sigmoid colon. No drainable abscesses. Moderate degenerative disc disease with T11 mild compression deformity liver shows several hepatic lesions. Given 2 L normal saline, IV Dilaudid 0.5 mg and IV promethazine 12.5 mg 1225: Laboratory studies reviewed. No signs of leukocytosis/anemia/platelet dysfunction/DIPAK/elevated LFTs/electrolyte imbalance/pancreatitis/coagulopathy. 1258: Called by radiologist, Dr. Richardson, who reports abdominal ultrasound shows is stable from prior images, no stones, no wall thickening of the gallbladder. 1300: Urinalysis unremarkable. ED decision to consult hospitalist for admission for intractable abdominal pain , nausea, vomiting. Stool studies pending at time of consult. Patient would benefit from GI consult and determine if candidate for endoscopy. 1410: P.o. Trial attempted and patient still feels nauseous with 1 episode of vomiting. Patient does not feel comfortable being discharged home. Called hospitalist and spoke with Dr. Bustillo who kindly agrees to admit patient to observation status and provide further care. This patient was seen under the supervision of my secondary supervising physician. I evaluated and cared for this patient with attending. Differential Diagnosis: Abdominal pain including but not limited to appendicitis, cholecystitis, gastritis and urinary tract infection. - Data Points Laboratory Results: Laboratory Results 04/13/19 11:30 04/13/19 11:30 04/13/19 04/13/19 04/13/19 12:35 11:50 11:40 WBC RBC Hgb POC Hgb 15.6 gm/dL gm/dL (12.6-16.3) Hct POC Hct 46 % % (38-47) MCV MCH MCHC RDW Plt Count MPV Neut % (Auto) Lymph % (Auto) [place] % (Auto) Eos % (Auto) Baso % (Auto) Nucleat RBC Rel Count Absolute Neuts (auto) Absolute Lymphs (auto) Absolute Monos (auto) Absolute Eos (auto) Absolute Basos (auto) Absolute Nucleated RBC Immature Gran % Immature Gran # VBG Lactic Acid 1.1 mmol/L mmol/L (0.7-2.1) POC Sodium 140 mEq/L mEq/L (135-145) Sodium POC Potassium 3.5 mEq/L mEq/L (3.3-5.0) Potassium POC Chloride 101 mEq/L mEq/L (97-110) Chloride Carbon Dioxide POC Total CO2 25 mEq/L mEq/L (22-31) Anion Gap POC BUN < 3 mg/dL L mg/dL (7-23) BUN Creatinine POC Creatinine 0.8 mg/dL mg/dL (0.6-1.0) Estimated GFR Glucose POC Glucose 119 mg/dL H mg/dL (70-100) Calcium Total Bilirubin Conjugated Bilirubin Unconjugated Bilirubin AST ALT Alkaline Phosphatase Total Protein Albumin Lipase Urine Color PALE YELLOW Urine Appearance CLEAR Urine pH 7.0 (5.0-7.5) Ur Specific [place] 1.002 (1.002-1.030) Urine Protein NEGATIVE (NEGATIVE) Urine Ketones NEGATIVE (NEGATIVE) Urine Blood NEGATIVE (NEGATIVE) Urine Nitrate NEGATIVE (NEGATIVE) Urine Bilirubin NEGATIVE (NEGATIVE) Urine Urobilinogen NEGATIVE EU EU (0.2-1.0) Ur Leukocyte Esterase NEGATIVE (NEGATIVE) Urine Glucose NEGATIVE (NEGATIVE) 04/13/19 04/13/19 11:30 11:30 WBC 4.65 10^3/uL 10^3/uL (3.80-9.50) RBC 4.83 10^6/uL 10^6/uL (4.18-5.33) Hgb 14.9 g/dL g/dL (12.6-16.3) POC Hgb Hct 44.0 % % (38.0-47.0) POC Hct MCV 91.1 fL fL (81.5-99.8) MCH 30.8 pg pg (27.9-34.1) MCHC 33.9 g/dL g/dL (32.4-36.7) RDW 12.5 % % (11.5-15.2) Plt Count 232 10^3/uL 10^3/uL (150-400) MPV 9.3 fL fL (8.7-11.7) Neut % (Auto) 57.7 % % (39.3-74.2) Lymph % (Auto) 34.0 % % (15.0-45.0) [place] % (Auto) 6.9 % % (4.5-13.0) Eos % (Auto) 0.6 % % (0.6-7.6) Baso % (Auto) 0.6 % % (0.3-1.7) Nucleat RBC Rel Count 0.0 % % (0.0-0.2) Absolute Neuts (auto) 2.68 10^3/uL 10^3/uL (1.70-6.50) Absolute Lymphs (auto) 1.58 10^3/uL 10^3/uL (1.00-3.00) Absolute Monos (auto) 0.32 10^3/uL 10^3/uL (0.30-0.80) Absolute Eos (auto) 0.03 10^3/uL 10^3/uL (0.03-0.40) Absolute Basos (auto) 0.03 10^3/uL 10^3/uL (0.02-0.10) Absolute Nucleated RBC 0.00 10^3/uL 10^3/uL (0-0.01) Immature Gran % 0.2 % % (0.0-1.1) Immature Gran # 0.01 10^3/uL 10^3/uL (0.00-0.10) VBG Lactic Acid POC Sodium Sodium 137 mEq/L mEq/L (135-145) POC Potassium Potassium 3.7 mEq/L mEq/L (3.5-5.2) POC Chloride Chloride 102 mEq/L mEq/L (97-110) Carbon Dioxide 24 mEq/l mEq/l (22-31) POC Total CO2 Anion Gap 11 mEq/L mEq/L (6-14) POC BUN BUN 5 mg/dL L mg/dL (7-23) Creatinine 0.8 mg/dL mg/dL (0.6-1.0) POC Creatinine Estimated GFR > 60 Glucose 115 mg/dL H mg/dL (70-100) POC Glucose Calcium 9.4 mg/dL mg/dL (8.5-10.4) Total Bilirubin 0.6 mg/dL mg/dL (0.1-1.4) Conjugated Bilirubin 0.1 mg/dL mg/dL (0.0-0.5) Unconjugated Bilirubin 0.5 mg/dL mg/dL (0.0-1.1) AST 20 IU/L IU/L (14-46) ALT 17 IU/L IU/L (9-52) Alkaline Phosphatase 101 IU/L IU/L (38-126) Total Protein 7.3 g/dL g/dL (6.3-8.2) Albumin 4.4 g/dL g/dL (3.5-5.0) Lipase 95 IU/L IU/L (23-300) Urine Color Urine Appearance Urine pH Ur Specific [place] Urine Protein Urine Ketones Urine Blood Urine Nitrate Urine Bilirubin Urine Urobilinogen Ur Leukocyte Esterase Urine Glucose Medications Given: Discontinued Medications Hydromorphone HCl (Dilaudid) 0.5 mg IVP EDNOW ONE Stop: 04/13/19 11:30 Last Admin: 04/13/19 12:51 Dose: Not Given Sodium Chloride (Ns) 1,000 mls @ 0 mls/hr IV EDNOW ONE; Wide Open PRN Reason: Protocol Stop: 04/13/19 11:30 Last Admin: 04/13/19 11:42 Dose: 1,000 mls Sodium Chloride (Ns) 1,000 mls @ 0 mls/hr IV EDNOW ONE; Wide Open PRN Reason: Protocol Stop: 04/13/19 11:30 Last Admin: 04/13/19 11:43 Dose: 1,000 mls Promethazine HCl (Phenergan) 12.5 mg IVP EDNOW ONE Stop: 04/13/19 11:30 Last Admin: 04/13/19 11:43 Dose: 12.5 mg Point of Care Test Results: Chemistry 04/13/19 11:40 POC Sodium 140 mEq/L mEq/L (135-145) POC Potassium 3.5 mEq/L mEq/L (3.3-5.0) POC Chloride 101 mEq/L mEq/L (97-110) POC Total CO2 25 mEq/L mEq/L (22-31) POC BUN < 3 mg/dL L mg/dL (7-23) POC Creatinine 0.8 mg/dL mg/dL (0.6-1.0) POC Glucose 119 mg/dL H mg/dL (70-100) ISTAT H&H 04/13/19 11:40 POC Hgb 15.6 gm/dL gm/dL (12.6-16.3) POC Hct 46 % % (38-47) Departure - Departure Disposition: [facility] Inpatient Acute Clinical Impression: Diverticulitis of sigmoid colon, Chronic generalized abdominal pain Intractable nausea and vomiting Qualifiers: Vomiting type: unspecified Qualified Code(s): R11.2 - Nausea with vomiting, unspecified Condition: Fair
[2019-04-13 11:41] LABS: PLATELET COUNT 232 10^3/uL (150-400)
[2019-04-13] MEDS ORDERED: ACETAMINOPHEN 325 MG TAB PO PRN (16:20)
[2019-04-13] MEDS ORDERED: ONDANSETRON 4 MG/2 ML VIAL IVP PRN (16:20)
[2019-04-13] MEDS ORDERED: ONDANSETRON DISINTEGRATING 4 MG TAB PO PRN (16:20)
[2019-04-13] MEDS ORDERED: METHOCARBAMOL 750 MG TAB PO PRN (16:22)
--- NOTE | 2019-04-13 18:06 | GHP ---
[f rep st] HISTORY AND PHYSICAL DATE OF ADMISSION: 04/13/2019 HISTORY OF PRESENT ILLNESS: This is a pleasant 68-year-old female who has enjoyed good health for mu ch of her life, but over the last month she has had a number of episodes. She had an episode of infl uenza, followed by an episode of diverticulitis for which she was hospitalized here after failing out patient therapy. She says she had gone home and has had significant lower abdominal crampy pain and back pain since then, and she has sounds like functionally not doing particularly well. She was read mitted for dizziness and saw Cardiology and, at that point, had a fairly negative workup. Her sympto ms that brought her in today started 1 week ago yesterday when she had really not much in the way of bowel movements during the week and then Sunday she had a firm bowel movement followed by multiple crampy brown bowel movements that got progressively softer and turned to liquid. She had been prescr ibed Metamucil which she was taking cautiously. In the past, she had taken Benefiber, but felt that caused bloating and flatulence. During the week she felt okay. She had some bowel movements, but th ey were small and then again last night she had crampy abdominal pain starting with firm stool gettin g progressively softer diarrhea. This is in the context of recovering from the diverticulitis and cai ving low back pain requiring her to take muscle relaxants and spend a lot of time in bed. She has no t had fever or chills. She has had some nausea but no vomiting. She has not had diarrhea. She has not had melena, bright red blood per rectum. She has not been jaundiced. She has not never had abdo madhuri surgery. She does not take narcotics at home. She is a nonsmoker. We spent a great deal of time discussing what is, in fact, likely going on here. REVIEW OF SYSTEMS: Complete 10-point review of systems conducted and negative except as noted in the HPI. PAST MEDICAL HISTORY: Hypertension, "sensitivity to medications", low back pain, vertigo, GERD, hist ory of right toe surgery, and right breast lumpectomy for fibroadenoma. ALLERGIES: Azithromycin causes vomiting. Gadobenate causes vomiting. Midazolam causes loss of cons ciousness. Penicillin causes itching. HOME MEDICATIONS: Fish oil, ondansetron, psyllium husk, Tylenol, vitamin C, aspirin, PreserVision, v itamin D3, glucosamine chondroitin, irbesartan, methocarbamol. SOCIAL HISTORY: Lives in [place]. She works as a performance dancer. Nonsmoker. Nondrinker. FAMILY HISTORY: Parents . PHYSICAL EXAMINATION: VITAL SIGNS: Temp 37.2, blood pressure 199/89, pulse 64, breathing 18 times a minute, 97% on room air. GENERAL: In no acute distress. HEENT: Sclerae anicteric. Oropharynx cl ear. Mucous membranes moist. NECK: Supple. No lymphadenopathy or JVD. LUNGS: Clear to auscultat ion bilaterally. HEART: S1, S2. ABDOMEN: Soft, nontender. Bowel sounds are present. LOWER EXTRE MITIES: No edema. Calves nontender. SKIN: Without rash. NEUROLOGIC: Exam is nonfocal. I have discussed the case with Amelia of the emergency department. LABS: White count 4.7, hematocrit 44, platelets are 232,000. Venous lactate is normal. Sodium 137, potassium 3.7, chloride 102, bicarb 24, BUN 5, creatinine 0.8, glucose 115. LFTs normal. Lipase no rmal. Urinalysis unremarkable. Abdominal ultrasound showed liver hemangiomata that are unchanged. Abdominal x-ray images reviewed and interpreted by me, showed normal bowel gas pattern with some resi dual stool but out without clear constipation. ASSESSMENT AND PLAN: A 68-year-old female with abdominal pain. 1. Abdominal pain. I think this is functional abdominal pain/constipation. It sounds like she has been under-treating with laxatives. Sometimes after an episode of diverticulitis, people can have an IBS-like symptomatology. I recommended twice daily MiraLAX to start this evening. I do not think t hat a colonoscopy or advanced imaging is warranted at this point in time. She has a benign exam. 2. Hypertension. This is right after the emergency department. I will continue her Benicar. 3. Constipation. Twice daily MiraLAX. 4. Medication intolerance. The patient has a lot of reactions to different medications including un controlled gyrations from levofloxacin, so we will minimize any new medicines that we supply her with . 5. Prophylaxis: SCDs. DISPOSITION: Observation. /[id number]/MODL
[2019-04-13] MEDS: PRESERVISION AREDS2 FORMULA EYE VIT 1 EACH PO SCH (20:28)
[2019-04-13] MEDS: ACETAMINOPHEN 500 MG TAB PO SCH (20:28)
[2019-04-13] MEDS: ASPIRIN 81 MG CHEWABLE TAB PO SCH (20:28)
[2019-04-13] MEDS: POLYETHYLENE GLYCOL 3350 17 GM PKT PO SCH (20:28)
[2019-04-13] MEDS: ASCORBIC ACID 500 MG TAB PO SCH (20:58)
[2019-04-14] MEDS: ACETAMINOPHEN 500 MG TAB PO SCH ×3 (07:38→20:54)
[2019-04-14] MEDS: POLYETHYLENE GLYCOL 3350 17 GM PKT PO SCH ×2 (07:42→20:48)
[2019-04-14] MEDS: IRBESARTAN 75 MG TAB PO SCH (08:22)
[2019-04-14] MEDS ORDERED: Herbals/Supplements -Info Only PO SCH (09:00)
[2019-04-14] MEDS: PRESERVISION AREDS2 FORMULA EYE VIT 1 EACH PO SCH ×2 (09:40→20:48)
[2019-04-14] MEDS: ASCORBIC ACID 500 MG TAB PO SCH ×2 (09:40→20:49)
[2019-04-14] MEDS: CHOLECALCIFEROL VIT D3 2,000 UNITS TAB/CAP PO SCH (09:40)
[2019-04-14] MEDS: GLUCOSAMINE/CHONDROITIN CAP PO SCH (09:41)
[2019-04-14] MEDS ORDERED: PROMETHAZINE HCL 25 MG/ML INJ IVP PRN (11:45)
[2019-04-14] MEDS ORDERED: IRBESARTAN 75 MG TAB PO ONE (13:24)
--- NOTE | 2019-04-14 13:46 | SOAPPROG ---
SOAP Progress Note Assessment/Plan: Assessment:Plan: see full dictated consult long hx of n/v, dizziness, vertigo - worse over last few months never had EGD her sx's may not be GI but more [employer]PER EGD with propofol HIDA with EF% consider Xifaxan 550mg PO TID for 14 days for her IBS-D type sx's Sandro Thompson MD [phone] 04/14/19 13:44 Objective: Vital Signs Temp Pulse Resp BP Pulse Ox 36.9 C 63 16 194/115 H 93 04/14/19 11:06 04/14/19 11:06 04/14/19 11:06 04/14/19 11:06 04/14/19 11:06 04/13/19 04/14/19 04/15/19 05:59 05:59 05:59 Intake Total 1999 Balance 1999 ICD10 Worksheet Patient Problems: Problems Problem Status Onset Chronic generalized abdominal pain Acute Diverticulitis of sigmoid colon Acute Intractable nausea and vomiting Acute Diverticulitis Acute Liver lesion Acute Near syncope Acute Respiratory infection, upper Acute Syncope and collapse Acute
--- NOTE | 2019-04-14 15:29 | GCON ---
[f rep st] CONSULTATION DATE OF CONSULTATION: 04/14/2019 REASON FOR CONSULTATION: Abdominal pain, nausea, and vomiting. HISTORY OF PRESENT ILLNESS: I have been asked by Darlene Connor NP to see the patient in consultation for chief complaint of nausea, vomiting, as well as abdominal pain. She has been seen in our outpatient office dating back to 2013 with chief complaint of nausea, vomiting. At that point, she complains of 5 distinct episodes over the previous 2 years. Starting with rectal urgency, followed by watery bowel movement, fatigue, nausea, vomiting, vertigo, and a syncopal or near-syncopal episode. She was admitted to [facility] August 2003 with one of these severe episodes. 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 In February of this year she was admitted to [facility] with a second episode of diverticulitis, which was treated with antibiotics. She had an episode of dizziness and was readmitted and seen by Cardiology at that point. She also states she has been seen by Neurology in the past, but not for a number of years. She describes 10 weeks of these symptoms with significant episodes of pain over the last 2 Saturdays. She has been experimenting with different fiber preparations. She got significant bloating and gas from Benefiber, but seemed to tolerate Metamucil somewhat better. She has been to the ER a number of times complaining of abdominal pain as well as nausea and vomiting. She is now admitted for the above, and I am called to help evaluate and treat in that regard. Of note, she cannot give me any true aggravating or alleviating symptoms for her episodes. There has been a long history of nausea and dizziness. She states that her mother told her that she would get nausea when she smelled a Band-Aid. I do not have her neurologic workup nor her imaging studies done at the [facility]. She has never had an EGD, although she was recommended to have one back in 2013 at her initial evaluation. PAST MEDICAL HISTORY: Hypertension, low back pain, vertigo. PAST SURGICAL HISTORY: Right toe surgery, right breast lumpectomy. ALLERGIES: Z-Carlos causes GI pain. Penicillin causes itching. HOME MEDICATIONS: Include: Fish oil, multivitamins, vitamin C, glucosamine, PreserVision, vitamin D3. SOCIAL HISTORY: She does not smoke. She quit alcohol back in 2012. She works as a performance dancer. FAMILY HISTORY: Maternal grandmother had diverticulitis. A sister has kidney stones. There are no cancers to her knowledge, no GI issues to her knowledge. REVIEW OF SYSTEMS: A complete review of systems was performed and negative other than on the HPI. PHYSICAL EXAM: GENERAL: Well-developed, well-nourished female sitting in her bed, in no acute distress. VITAL SIGNS: Temperature is 36.9, blood pressure is 194/115, heart rate is 63, respirations 16. She is 93% on room air. EYES: Anicteric. ELIAZAR, EOMI. MOUTH: No lesions. NECK: Full range of motion. No JVD. BACK: No spine tenderness. No CVA tenderness. LUNGS: Clear. CARDIAC: S1, S2. Regular rate and rhythm. I do not appreciate any murmurs, rubs or gallops. ABDOMEN: Soft with minimal epigastric and left lower quadrant discomfort. No rebound. No guarding. No hepatosplenomegaly. EXTREMITIES: No cyanosis, clubbing, or edema. NEUROLOGIC: Cranial nerves intact. Nonfocal. Oriented x3. SKIN: No rashes. LABORATORY DATA: From April 13: WBC 4.65, hemoglobin 14.9, hematocrit 34.0, platelet count 232. Sodium 140, potassium 3.5, chloride 101, bicarb 25, BUN 5, creatinine 0.8, glucose 115, calcium 9.4, total bilirubin 0.6. AST 20, ALT 17, alkaline phosphatase 101, albumin 4.4, lipase 95. From March 14, 2019: ProTime 12.9, INR 1.01. PTT 36.6. Abdominal ultrasound performed April 13, 2019: No acute findings. No significant change of multiple benign-appearing hepatic lesions, likely hemangiomas. Abdominal x-ray also performed April 13, 2019: Bowel pattern within normal limits , minimal retained stool throughout the right and left hemicolon. No significant constipation. Abdominal CT scan performed March 14, 2019, with IV contrast, no oral contrast: Diffuse diverticulitis throughout the entire colon. The appendix appears without inflammatory changes. There is acute diverticulitis of the sigmoid colon with 6 cm of pericolonic inflammation and stranding. Uterus appears normal. No adnexal masses. Liver shows several hyperdense hepatic lesions with the largest centrally in the right lobe, consistent with hepatic hemangiomas. Biliary system shows no biliary ductal dilatation. Abdominal CAT scan from April 04, 2016: Sigmoid diverticulitis and small volume of free fluid in the pelvis. No abscess or evidence of perforation. 5 benign liver lesions, 4 hemangiomas and 1 suspected adenoma have not significantly changed, if anything the adenoma is minimally decreased in size. Colonoscopy performed August 25, 2016: Prep was good. Exam to the ileocecal valve, appendiceal orifice, diverticulosis was noted. Colonoscopy in April of 2005: This was an exam to cecum, excellent prep, left-sided diverticulosis noted. ASSESSMENT: 1. Abdominal pain. 2. Nausea, vomiting longstanding, associated with dizziness and vertigo and near syncope. 3. Hypertension. 4. History of diverticulitis. RECOMMENDATIONS: 1. EGD for evaluation of nausea, vomiting, although this may be a central issue. 2. Consider HIDA scan with ejection fraction to make sure there was no gallbladder dyskinesia causing some of her nausea and vomiting. 3. Can consider Xifaxan 550 mg p.o. three times daily for 14 days for IBS symptoms, pending clinical course and EGD. 4. Consider neurologic evaluation. This could be as an outpatient. 5. Further recommendations to follow results above and clinical course. Thank for allowing me to participate in the patient's healthcare. Do not hesitate to call me with any questions. /[id number]/MODL MTDD
--- NOTE | 2019-04-14 15:39 | HOSPPROG ---
Hospitalist Progress Note Assessment/Plan: Patient is a 68-year-old female who was admitted with abdominal pain. She has a long history of feeling dizzy, abdominal pain, loose stools, and poor intake. I reviewed her abdominal ultrasound which showed a liver hemangioma that is unchanged. The abdominal x-ray shows nothing specific. The patient has had multiple testing and studies done in the past but has not had an EGD. Spoke with Dr. Thompson and he will see the patient. * abdominal pain -this could be functional abdominal pain versus some type of IBS -her exam is benign but she continues to complain of episodic nausea that waxes and wanes -Gastroenterology to see *nausea -prn Phenergan -was able to eat breakfast *HTN -resumed Avapro, had to give an extra dose today *constipation -Miralax bid added *medication intolerance -has significant problems w new medications, will avoid *plan: scope tomorrow, if negative; will encourage her to seek out other types of care, Alpesh Vargas may be a good care provider Subjective: Arelis wants answers about her health, it has been difficult for her to manage her nausea, loose stools, weakness at home. Objective: Vital Signs Temp Pulse Resp BP Pulse Ox 36.8 C 71 16 160/88 H 96 04/14/19 14:56 04/14/19 14:56 04/14/19 14:56 04/14/19 14:56 04/14/19 14:56 04/13/19 04/14/19 04/15/19 05:59 05:59 05:59 Intake Total 1999 Balance 1999 - Physical Exam Constitutional: appears nourished, uncomfortable Eyes: PERRL Ears, Nose, Mouth, Throat: hearing normal Cardiovascular: regular rate and rhythym, no murmur, rub, or gallop Respiratory: no respiratory distress Gastrointestinal: soft, non-tender abdomen Neurologic: AAOx3 Psychiatric: interacting appropriately ICD10 Worksheet Patient Problems: Problems Problem Status Onset Chronic generalized abdominal pain Acute Diverticulitis of sigmoid colon Acute Intractable nausea and vomiting Acute Diverticulitis Acute Liver lesion Acute Near syncope Acute Respiratory infection, upper Acute Syncope and collapse Acute
--- NOTE | 2019-04-14 17:00 | ASMTCMCOM ---
CM Note CM Note Notes: CM spoke with pt in the room. 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 Pt lives alone but has friends and neighbors spending this night with her regularly. She is current with [facility]. No therapies are ordered on this admission, but pt would like to continue with [facility] PT/OT on discharge. CM to follow. D/C Plan: [facility] PT/[facility] Date Signed: 04/14/2019 03:58 PM Electronically Signed By:Cheryl Chaudhary
[2019-04-14] MEDS: ASPIRIN 81 MG CHEWABLE TAB PO SCH (20:48)
[2019-04-15] MEDS ORDERED: LR 1,000 ML IV ONE (07:19)
[2019-04-15] MEDS: IRBESARTAN 75 MG TAB PO SCH (07:20)
--- NOTE | 2019-04-15 08:06 | PDANEPAE ---
ANE History of Present Illness EGD for abdominal pain ANE Past Medical History - Cardiovascular History Hx Hypertension: Yes Hx Arrhythmias: No Hx Chest Pain: No Hx Coronary Artery / Peripheral Vascular Disease: No Hx CHF / Valvular Disease: No Hx Palpitations: No - Pulmonary History Hx COPD: No Hx Asthma/Reactive Airway Disease: No Hx Recent Upper Respiratory Infection: No Hx Oxygen in Use at Home: No Hx Sleep Apnea: No Sleep Apnea Screening Result - Last Documented: Positive - Neurologic History Hx Cerebrovascular Accident: No Hx Seizures: No Hx Dementia: No Neurologic History Comment: migraines. vertigo - Endocrine History Hx Diabetes: No - Renal History Hx Renal Disorders: No - Liver History Hx Hepatic Disorders: No - Neurological & Psychiatric Hx Hx Neurological and Psychiatric Disorders: Yes Neurological / Psychiatric History Comment: severe anxiety - Cancer History Hx Cancer: No - Congenital Disorder History Hx Congenital Disorders: No - GI History Hx Gastrointestinal Disorders: Yes Gastrointestinal History Comment: diverticulitis. had colon [facility] today 08/24 and failed so now she is doing it tomorrow at hospital - Other Health History Other Health History: none - Chronic Pain History Chronic Pain: No - Surgical History Prior Surgeries: right foot surgery 2000. vaginal surgery 2000. right breast surgery 1975 ANE Review of Systems Review of Systems: - Exercise capacity Exercise capacity: <4 METS ANE Patient History - Allergies Allergies/Adverse Reactions: azithromycin Allergy (Verified 04/13/19 11:15) Vomiting gadobenate dimeglumine [From Multihance] Allergy (Verified 04/13/19 11:15) Vomiting levofloxacin [From Levaquin] Allergy (Verified 04/13/19 11:15) midazolam HCl [From Versed] Allergy (Verified 04/13/19 11:15) Loss of consciousness Penicillins Allergy (Verified 04/13/19 11:15) Itching "Very drug sensitive" Allergy (Uncoded 03/14/19 00:29) pain medications Allergy (Uncoded 03/14/19 00:29) Vomiting - Home Medications Home medications: home medication list seen and reviewed Home Medications: Ascorbic Acid [Vitamin C 500 mg (*)] 1,000 mg PO BID 03/14/19 [Last Taken ] C/E/Zn/Cu/OM3/DHA/EPA/LUT/ZEAX [Preservision Areds 2 Softgel] 1 each PO BID [Last Taken 04/13/19 09:00] Cholecalciferol Vit D3 [Vitamin D3 (*)] 3,000 units PO DAILY 03/14/19 [Last Taken 03/13/19] Glucosamine/Chondroitin [Glucosamine/Chondroitin (*)] 1 each PO DAILY 03/14/19 [ Last Taken 03/13/19] Irbesartan [Avapro 75 mg (*)] 37.5 mg PO DAILY 03/14/19 [Last Taken 04/03/19] [place]-3 Fatty Acids [Fish Oil 1000 mg (*)] 2,000 mg PO BID 03/14/19 [Last Taken 03/13/19] Psyllium Husk (with Sugar) [Metamucil Packet] 1 each PO DAILY 03/14/19 [Last Taken 04/12/19] Acetaminophen [Tylenol ES 500 mg (*)] 1,000 mg PO BID 04/01/19 [Last Taken 04/01] Aspirin [Aspirin 81mg (*)] 81 mg PO HS 04/01/19 [Last Taken 04/12/19] Herbals/Supplements -Info Only 1 ea PO DAILY 04/13/19 [Last Taken Unknown] - NPO status NPO Status: no food or drink >8 hours NPO Since - Liquids (Date): 04/15/19 NPO Since - Liquids (Time): 00:00 NPO Since - Solids (Date): 04/15/19 NPO Since - Solids (Time): 00:00 - Anes Hx Anes Hx: no prior problems - Smoking Hx Smoking Status: Never smoked - Alcohol Use Alcohol Use: None - Family Anes Hx Family Anes Hx: none Family Hx Anesthesia Complications: none ANE Labs/Vital Signs - Labs Result Diagrams: 04/13/19 11:30 04/13/19 11:30 - Vital Signs Blood Pressure: 161/85 Heart Rate: 48 Respiratory Rate: 16 O2 Sat (%): 97 Height: 164.59 cm Weight: 63.503 kg ANE Physical Exam - Airway Neck exam: FROM Mallampati Score: Class 2 Mouth exam: poor dentition - Pulmonary Pulmonary: no respiratory distress - Cardiovascular Cardiovascular: regular rate and rhythym - ASA Status ASA Status: II ANE Anesthesia Plan Anesthesia Plan: GA with mask
[2019-04-15] MEDS ORDERED: PROPOFOL/EMULSION 500 MG/50 ML BOTTLE IV ONE (08:13)
[2019-04-15] MEDS ORDERED: LIDOCAINE 2% 2 ML INJ ONE ×2 (08:14)
[2019-04-15] MEDS ORDERED: ALBUTEROL 3 ML DEYVIAL IH PRN (08:38)
[2019-04-15] MEDS ORDERED: fentaNYL 100 MCG/2 ML INJ IVP PRN (08:38)
[2019-04-15] MEDS ORDERED: NALOXONE HCL 0.4 MG/ML INJ IVP PRN (08:38)
[2019-04-15] MEDS ORDERED: DEXAMETHASONE 4 MG/ML VIAL IVP PRN (08:38)
[2019-04-15] MEDS ORDERED: LABETALOL HCL 5 MG/ML 20 ML MDV IVP PRN (08:38)
[2019-04-15] MEDS ORDERED: oxyCODONE IR 5 MG TAB PO PRN (08:38)
[2019-04-15] MEDS ORDERED: ONDANSETRON 4 MG/2 ML VIAL IVP PRN (08:38)
[2019-04-15] MEDS ORDERED: LR 500 ML IV PRN (08:38)
--- NOTE | 2019-04-15 08:44 | GIREPORT ---
[facility] Surgical Services - Endoscopy Department Patient Name: Arelis Leroy Procedure Date: 04/15/2019 8:00 AM Patient Type: Inpatient Attending MD/ ER Physician: Sandro Thompson MD Procedure: Upper GI endoscopy Indications: Abdominal pain, Nausea with vomiting Providers: Sandro Thompson MD Referring MD: Ramandeep Renteria MD Medicines: Propofol per Anesthesia Complications: No immediate complications. Estimated blood loss: Minimal. Description of Procedure: After obtaining informed consent, the endoscope was passed under direct vision. Throughout the procedure, the patient's blood pressure, pulse, and oxygen saturations were monitored continuously. The Endoscope was intro duced through the mouth, and advanced to the third part of duodenum. The uppe r GI endoscopy was accomplished without difficulty. The patient tolerated th e procedure well. Findings: LA Grade B (one or more mucosal breaks greater than 5 mm, not extending between the tops of two mucosal folds) esophagitis with no bleeding was found at the gastroesophageal junction. Biopsies were taken with a cold forceps for histology. Estimated blood loss was minimal. A medium-sized hiatal hernia was present. Diffuse mildly erythematous mucosa without bleeding was found in the ga stric body and in the gastric antrum. Biopsies were taken with a cold forceps for histology. Estimated blood loss was minimal. The examined duodenum was normal. Biopsies for histology were taken wit h a cold forceps for evaluation of celiac disease. Estimated blood loss was minimal. The exam was otherwise without abnormality. Estimated Blood Loss: Estimated blood loss was minimal. Post Op Diagnosis: - LA Grade B reflux esophagitis. Biopsied. This maybe the effect of her n/v and not the cause of her n/v - Medium-sized hiatal hernia. - Erythematous mucosa in the gastric body and antrum. Biopsied. - Normal examined duodenum. Biopsied. - The examination was otherwise normal. Recommendation: - Await pathology results. - My office will call with the pathology result with 5-7 days. If you h ave not heard from my office by 12-14, do not assume the pathology is joanna l, please call [phone] to get the pathology results. - Use Protonix (pantoprazole) 40 mg PO daily for 2 months. - Use Zantac (ranitidine) 300 mg PO at bedtime for 1 month. - [facility] patient to [facility]. - Resume previous diet. - Thank you for allowing me to help in your patient's care. Do not hesi arias to call with any questions. Attending Participation: I personally performed the entire procedure. Jay Mckeon M.D Sandro Thompson MD 04/15/2019 8:43:18 AM This report has been signed electronicallyMattmala Thompson MD Number of Addenda: 0 Note Initiated On: 04/15/2019 8:00 AM [email or web address]
--- NOTE | 2019-04-15 08:44 | POSTANESTH ---
Post Anesthetic Evaluation Cardiovascular Status: Normal, Stable Respiratory Status: Normal, Stable, Similar to Pre-op Cond., Tx Decrease in SpO2 Level of Consciousness/Mental Status: Can Participate in Eval, Mildly Sleepy, Arousable Pain Control: Adequate, Prn Tx Ordered Nausea/Vomiting Control: Adequate, Prn Tx Ordered Complications Possibly Related to Anesthesia: None Noted
[2019-04-15] MEDS: ACETAMINOPHEN 500 MG TAB PO SCH ×2 (09:49→20:20)
[2019-04-15] MEDS: GLUCOSAMINE/CHONDROITIN CAP PO SCH (09:49)
[2019-04-15] MEDS: PRESERVISION AREDS2 FORMULA EYE VIT 1 EACH PO SCH ×2 (09:49→20:22)
[2019-04-15] MEDS: ASCORBIC ACID 500 MG TAB PO SCH ×2 (09:49→20:21)
[2019-04-15] MEDS: CHOLECALCIFEROL VIT D3 2,000 UNITS TAB/CAP PO SCH (09:49)
[2019-04-15] MEDS: POLYETHYLENE GLYCOL 3350 17 GM PKT PO SCH (11:22)
[2019-04-15] MEDS: PANTOPRAZOLE SODIUM 40 MG TAB PO SCH (12:39)
--- NOTE | 2019-04-15 14:56 | HOSPPROG ---
Hospitalist Progress Note Assessment/Plan: Patient is a 68-year-old female who was admitted with abdominal pain. She has a long history of feeling dizzy, abdominal pain, loose stools, and poor intake. I reviewed her abdominal ultrasound which showed a liver hemangioma that is unchanged. The abdominal x-ray shows nothing specific. The patient has had multiple testing and studies done in the past but has not had an EGD. * abdominal pain -this could be functional abdominal pain versus some type of IBS -her exam is benign but she continues to complain of episodic nausea that waxes and wanes -encouraged her to see Dr Vargas or an alternative type physician, she has had multiple w/u and may benefit from mind-body work *esophagitis -s/p endoscopy -could be etiology of her nausea and pain -Protonix 40 mg daily x 2 months, Zantac 300 mg QHS x 1 month *nausea -prn Phenergan -was able to eat breakfast *HTN -resumed Avapro, had to give an extra dose today -will increase her dose for tomorrow *constipation -Miralax bid added, but put on hold today-she is having multiple loose stools *medication intolerance -has significant problems w new medications, will avoid *plan: CC said she couldn't go home today, feels too fatigued, unsure if she can eat enough. On dc she will need script for PPI and needs to f/u with Dr Thompson in regards to biopsies. Subjective: CC said she feels poorly and concerned she isn't able to go home just yet. Objective: Vital Signs Temp Pulse Resp BP Pulse Ox 36.8 C 64 16 163/83 H 97 04/15/19 12:29 04/15/19 12:29 04/15/19 12:29 04/15/19 12:29 04/15/19 12:29 04/14/19 04/15/19 04/16/19 05:59 05:59 05:59 Intake Total 1999 270 Output Total 0 Balance 1999 270 - Physical Exam Constitutional: appears nourished Eyes: PERRL Ears, Nose, Mouth, Throat: hearing normal Cardiovascular: regular rate and rhythym Respiratory: no respiratory distress Gastrointestinal: normoactive bowel sounds, other (slightly bloated,non tender) Skin: warm Musculoskeletal: generalized weakness Neurologic: AAOx3 Psychiatric: interacting appropriately ICD10 Worksheet Patient Problems: Problems Problem Status Onset Chronic generalized abdominal pain Acute Diverticulitis of sigmoid colon Acute Intractable nausea and vomiting Acute Diverticulitis Acute Liver lesion Acute Near syncope Acute Respiratory infection, upper Acute Syncope and collapse Acute
[2019-04-15] MEDS ORDERED: IRBESARTAN 75 MG TAB PO ONE (15:00)
[2019-04-15] MEDS: ASPIRIN 81 MG CHEWABLE TAB PO SCH (20:22)
[2019-04-15] MEDS ORDERED: RANITIDINE HCL 150 MG/10 ML UDCUP PO SCH (21:00)
[2019-04-16] MEDS: ASCORBIC ACID 500 MG TAB PO SCH (08:59)
[2019-04-16] MEDS: CHOLECALCIFEROL VIT D3 2,000 UNITS TAB/CAP PO SCH (08:59)
[2019-04-16] MEDS: ACETAMINOPHEN 500 MG TAB PO SCH (08:59)
[2019-04-16] MEDS: PANTOPRAZOLE SODIUM 40 MG TAB PO SCH (08:59)
[2019-04-16] MEDS: GLUCOSAMINE/CHONDROITIN CAP PO SCH (08:59)
[2019-04-16] MEDS ORDERED: IRBESARTAN 75 MG TAB PO SCH ×2 (09:00)
[2019-04-16] MEDS: PRESERVISION AREDS2 FORMULA EYE VIT 1 EACH PO SCH (10:09)
[2019-04-16 10:59] VITALS: BP 132/70
--- NOTE | 2019-04-16 13:30 | SOAPPROG ---
SOAP Progress Note Assessment/Plan: Assessment:Plan: see full dictated consult long hx of n/v, dizziness, vertigo - worse over last few months never had EGD her sx's may not be GI but more OFFICE SERVICES SPECIALIST EGD with propofol HIDA with EF% consider Xifaxan 550mg PO TID for 14 days for her IBS-D type sx's Sandro Thompson MD [phone] 04/14/19 13:44 04/16/19 13:27 1) nausea - EGD showed some reflux changes but they may bbe the result of her n/ v and not the cause of it. PPI qam for 2 months, H2RA QHS for one month. If nausea persists can check HIDA scan with EF%. As I have noted, her nausea may not be from her GI tract 2) diarrhea - could consider xifaxan 550mg PO tid for 14 days for her IBS type sx's 3) dispo - home today Subjective: cc- nausea pt had no nausea yesterday post EGD had some this am, but thinks meds maybe working has a bit more lower abdo discomfort Objective: Vital Signs Temp Pulse Resp BP Pulse Ox 36.7 C 75 16 132/70 H 96 04/16/19 10:58 04/16/19 10:58 04/16/19 10:58 04/16/19 10:58 04/16/19 10:58 04/15/19 04/16/19 04/17/19 05:59 05:59 05:59 Intake Total 470 Output Total 0 Balance 470 CTA S1S2 +BS soft no r/g ICD10 Worksheet Patient Problems: Problems Problem Status Onset Chronic generalized abdominal pain Acute Diverticulitis of sigmoid colon Acute Intractable nausea and vomiting Acute Diverticulitis Acute Liver lesion Acute Near syncope Acute Respiratory infection, upper Acute Syncope and collapse Acute
--- NOTE | 2019-04-16 14:36 | GDS ---
[f rep st] DISCHARGE SUMMARY DISCHARGE DIAGNOSES: 1. Abdominal pain. 2. Esophagitis. 3. Nausea. 4. Hypertension. 5. Constipation. HISTORY OF PRESENT ILLNESS: A 68-year-old female, who presents with abdominal pain. She recently had an episode of influenza, then diverticulitis, for which she was hospitalized after failing outpatient therapy. Since then, she has had significant lower abdominal crampy pain, diarrhea. She was readmitted for dizziness and saw Cardiology. At that point, she had a negative workup. HOSPITAL COURSE BY PROBLEM: 1. Abdominal pain: Improved. EGD showed grade B esophagitis and hiatal hernia. Trial PPI and Zantac for 1 month. If symptoms persist, can check a HIDA scan. 2. Diarrhea. IBS-like symptoms. Trial rifaximin.. 3. Hypertension. reports feeling dizzy with blood pressures though stable SBP 110-120. Dose Avapro twice a day. Advised to check her blood pressure 3 times a day. Follow up with her PCP closely. 4. Constipation. Continue MiraLAX. DISPOSITION: The patient is stable for discharge. NEW MEDICATIONS: 1. Avapro 37.5 twice daily. 2. Protonix 40 daily. 3. Ranitidine 300 mg at bedtime. 4. Phenergan. 5. Rifaximin. FOLLOWUP: 1. Pathology. 2. Dr. Thompson 3. Blood pressure with primary care physician. /[id number]/MODL MTDD
--- NOTE | 2019-04-16 14:57 | PDIAF ---
- Diagnosis Diagnosis: Nausea Code Status: Full Code - Medication Management Discharge Medications: electronically signed and located in the Home Medication List. - Orders Services needed: Home Care, Physical Therapy, Occupational Therapy Home Care Face to Face: I certify that this patient was under my care and that I had the required [id number] encounter meeting the encounter requirements on the discharge day. My findings support the fact that the patient is homebound as defined in Home Care Face to Face Continued: CMS Chapter 7 Medicare Benefits Manual 30.1.1 , The condition of the patient is such that there exists a normal inability to leave home and consequently, leaving home would require a considerable and taxing effort. Diet Recommendation: no restrictions on diet Diet Texture: Regular Texture Diet Additional Instructions: Check your blood pressure 3 times a day and keep a log Trial Rifaximin for 2 weeks for IBS-diarrhea symptoms - Follow Up Care Current Providers and Referrals: Ramandeep Renteria MD [Primary Care Provider] -
--- NOTE | 2019-04-16 15:25 | ASMTLACE ---
LACE Length of stay for Answers: 3 days current admission Acuity / Level of Answers: No Care: Did the patient have an inpatient admission? Comorbidities - select Answers: Other Notes: Diverticulitis; HTN all that apply # of Emergency department Answers: 3-4 visits in the last 6 months Score: 7 Date Signed: 04/16/2019 03:24 PM Electronically Signed By:Sharlene Bañuelos RN
--- NOTE | 2019-04-16 15:27 | ASMTDCNOTE ---
Case Management Discharge Discharge Order Complete? Answers: Yes Patient to Obtain Answers: Independently Medications Transportation Arranged Answers: Family/Friends Faxed Final Orders Answers: Yes Discharge Comments Notes: D/w , final orders in chart. Polly at [facility] notified, RN to call report. Date Signed: 04/16/2019 03:26 PM Electronically Signed By:Sharlene Bañuelos RN
--- NOTE | 2019-04-17 15:04 | ASDISCHSUM ---
Discharge Information Plan Status:Home with Home Health Medically Cleared to Leave: Discharge Date:04/16/2019 04:40 PM CM D/C Disposition:Home Health Service ADT D/C Disposition:Home, Routine, Self-Care Projected Discharge Date:04/16/2019 11:00 AM Transportation at D/C:Family Discharge Delay Reason: Follow-Up Date:04/16/2019 11:00 AM Discharge Slot: Final Diagnosis: Placement Information Referral Type:*Home Health Care Services Referral ID:[id number] Provider [facility] [address] Phone Number: Address 2: Fax Number: City:[place] Selection Factors: State:[place] Patient Contact Information Contact Name:LORY Relationship:Sister Address:[address] City:[place] Alternate Phone: State/Zip Code:[place] [address] Email: Financial Information Financial Class:Medicare Advantage Plans Primary Plan Desc:[employer] MED[employer]ARE ADV Primary Plan Number:[id number] Secondary Plan Desc: Secondary Plan Number: Assessment Information LACE LACE Length of stay for Answers: 3 days current admission Acuity / Level of Answers: No Care: Did the patient have an inpatient admission? Comorbidities - select Answers: Other Notes: Diverticulitis; HTN all that apply # of Emergency department Answers: 3-4 visits in the last 6 months Score: 7 Date Signed: 04/16/2019 03:24 PM Electronically Signed By:Sharlene Bañuelos RN [facility] Progress Note CM Note CM Note Notes: CM spoke with pt in the room. 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 Pt lives alone but has friends and neighbors spending this night with her regularly. She is current with [facility]. No therapies are ordered on this admission, but pt would like to continue with [facility] PT/OT on discharge. CM to follow. D/C Plan: [facility] PT/OT Date Signed: 04/14/2019 03:58 PM Electronically Signed By:Cheryl Smith RN Case Management Discharge Plan Note Case Management Discharge Discharge Order Complete? Answers: Yes Patient to Obtain Answers: Independently Medications Transportation Arranged Answers: Family/Friends Faxed Final Orders Answers: Yes Discharge Comments Notes: D/w , final orders in chart. Polly at [facility] notified, DARRYN to call report. Date Signed: 04/16/2019 03:26 PM Electronically Signed By:Sharlene Bañuelos RN Intervention Information
== END 2019-04-16 16:40 | disposition home health service (06) ==
LOC: F3E 14:51
PROVIDERS: ADMIT Internal Medicine; ATTEND Internal Medicine
DX: R10.84 Generalized abdominal pain (principal); R11.2 Nausea with vomiting, unspecified; K20.9 Esophagitis, unspecified; K29.70 Gastritis, unspecified, without bleeding
CPT/HCPCS: 43239; 74019; 76705; G0378; J2550; J2704; 82435-PO; 82565-PO; 82947-PO; 84132-PO; 84295-PO; 84520-PO; 85014-ER